=== PATIENT | female | born 1940 | race Caucasian/White ===

== ENCOUNTER 2018-11-20 13:11 | Emergency (ER) | payer MEDICARE, BC, SELFPAY ==
[2018-11-20 13:12] VITALS: BP 169/90; PULSE 72; RESP 18; TEMP 36.4; O2SAT 95; BMI 20.5
--- NOTE | 2018-11-20 13:40 | EKG12_ITS ---
Test Reason : ABD PAIN Blood Pressure : / mmHG Vent. Rate : 067 BPM Atrial Rate : 067 BPM P-R Int : 174 ms QRS Dur : 086 ms QT Int : 410 ms P-R-T Axes : 076 082 084 degrees QTc Int : 433 ms Normal sinus rhythm Minimal voltage criteria for LVH, may be normal variant Nonspecific ST and T wave abnormality Abnormal ECG Confirmed by JOHANA NUÑEZ, JAMAR ([id number]), newspaper managing editor CESAR JESUS ([id number]) on 11/22/2018 1:20:10 PM Referred By: SARA Confirmed By:JAMAR VAUGHN MD
[2018-11-20] MEDS: Ondansetron 4 MG/2 ML Vial IV (14:28)
[2018-11-20 14:43] LABS: Absolute Lymphocyte Count 1.55 X10^3/ul (0.83-4.51); Basophil# 0.02 X10^3/uL; Basophil% 0.2 % (0-1); Differential Indicated SCAN CRITERIA MET; Eosinophil# 0.19 X10^3/uL; Eosinophils% 2.2 % (0-5); Hematocrit 41.7 % (37-47); Hemoglobin 13.1 g/dl (12.0-15.0); Lymphocyte # 1.55 X10^3/ul (4.0); Lymphocyte % 18.2 % (19-41); Mean Corp Hgb Conc 31.4 g/gl (32-36); Mean Corpuscular Hgb 31.3 pg (27.0-32.0); Mean Corpuscular Volume 99.8 fL (81-99); Mean Platelet Vol. 9.6 fl (6.2-12.0); Monocyte# 1.75 X10^3/uL; Monocyte% 20.6 % (0-10); Neutrophil # 4.99 X10^3/uL (2.7-7.7); Neutrophil % 58.7 % (47-70); POSITIVE COUNT NO; POSITIVE DIFFERENTIAL YES; POSITIVE MORPHOLOGY NO; Platelet Count 349 K/mm3 (150-450); RBC Distribution Width CV 14.3 % (11.6-14.6); RBC Distribution Width SD 51.6 fl (35.1-43.9); Red Blood Count 4.18 M/mm3 (4.2-5.4); White Blood Count 8.5 K/mm3 (4.4-11.0)
--- NOTE | 2018-11-20 14:45 | CM.ED ---
SOCIAL WORK ASSESSMENT REASON FOR CONSULT: BEHAVIORS, HOSPICE INFORMANT: DR. PERALTA INFORMATION OBTAINED FROM: [facility] RECORDS, PT, AND PT'S DTR/GUARDIAN, TRIPP MAXWELL. PT IS ALERT AND ORIENTED. REPORTS TO BE IN PAIN AND CLAIMS SHE HAS BEEN HAVING ABDOMINAL PAIN SINCE YESTERDAY EVENING. PT IS TEARFUL THROUGHOUT CONVERSATION SHE STATES THAT SHE FEELS ISOLATED AND IS ANGRY WITH HER DAUGHTER WHO HAS TAKEN EVERYTHING FROM ME. LIVING ARRANGEMENTS: [facility] SINCE AUGUST. FINANCIAL: PT DENIES FINANCIAL INSTABILITY, BUT BECOMES UPSET SHE STATES THAT HER DAUGHTER IS NOW IN CONTROL OF ALL OF HER FUNDS. SUPPORTS: PT EXPRESSES AN ESTRANGED RELATIONSHIP WITH HER DAUGHTER, TRIPP MAXWELL, BUT REPORTS THAT HER GRANDSON, DESHAWN, IS A POSITIVE SUPPORT. IDENTIFIES FRIENDS THAT SHE HAS MADE SINCE GOING TO [facility], BUT BECOMES TEARFUL WHEN DISCUSSING FRIENDS FROM [facility] WHERE SHE RESIDED PRIOR TO [facility]. STRESSORS: LOSS OF INDEPENDENCE, FEELING OF ISOLATION, LIMITED SUPPORTS. MENTAL HEALTH HISTORY: PT DENIES ANY SIGNIFICANT MENTAL HEALTH HISTORY. DOES REPORT SYMPTOMS OF DEPRESSION AND STRESS AT THIS TIME. SUPPORT PROVIDED. PT DENIES ANY PAST HOSPITALIZATIONS FOR PSYCHIATRIC CONCERNS. DENIES SI OR HI. SPOKE WITH PT'S GUARDIAN WHO ALSO DENIES ANY PERTINENT PSYCHIATRIC HISTORY AND NONE IS LISTED IN HER MEDICAL CHART FROM [facility]. SUBSTANCE USE HX: PT REPORTS SMOKING TOBACCO SINCE THE AGE OF 14 UNTIL BEING TRANSFERRED TO SNF IN [place] IN AUGUST. DENIES HX OF ANY OTHER SUBSTANCE USE. ASSESSMENT: PT IS VERY UPSET THAT HER DAUGHTER IS IN CHARGE OF HER CARE, AND EXPRESSES THAT SHE DOES NOT UNDERSTAND WHY SHE NEEDS TO TAKE BP MEDICATIONS WHEN THEY (SNF STAFF) DO NOT EVEN CHECK MY BP TO MAKE SURE I NEED IT. PT ENGAGES IN CRITICAL THINKING AND IS A&OX3 THROUGHOUT CONVERSATION. SHE ALSO EXPRESSES INTEREST IN HOSPICE SERVICES. REPORTS SIGNIFICANT PAIN. PT APPEARS TO BE STRUGGLING WITH ADJUSTMENT OF RECENT MOVE TO [place] FROM [facility] AND WITH LOSS OF INDEPENDENCE. PLACED CALL TO THE PT'S DAUGHTER, TRIPP, WHO CONFIRMS SHE IS THE HCPOA AND GUARDIAN. TRIPP TO BRING PAPERWORK IN TIME ALLOWS. EXPERT EVALUATION COMPLETED BY PHYSICIAN IS ON CHART THAT WAS SENT TO [facility], BUT NOT LG PAPERWORK AT THIS TIME. DISCUSS PALLIATIVE VS. HOSPICE WITH TRIPP AND SHE STATES THAT THE PT HAS PALLIATIVE NOW. DOES NOT WANT TO SEEK HOSPICE AT THIS TIME. IF PT IS MEDICALLY STABLE TRIPP WOULD LIKE HER TO RETURN TO [facility] AND RECEIVE AN UPDATE ONCE THIS IS DETERMINED. PHYSICIAN UPDATED. INTERVENTION(S): ASSESSMENT COMPLETED. PLACED CALL TO GUARDIAN WHO CONFIRMS PLAN TO RETURN TO SNF. DISCUSSED CASE WITH STITCH WELDER, HIEN LOCKE. PLAN: RETURN TO [facility] ONCE DETERMINED MEDICALLY STABLE. KATE Ngo, MOISÉS
[2018-11-20 15:05] LABS: International Normalized Ratio 1.8; Prothrombin Time (Protime)PT. 21.2 SECONDS (11.7-14.9)
--- NOTE | 2018-11-20 15:09 | ED.VISSUMM ---
- ER Visit Summary Date of Service: 11/20/18 Chief Complaint: Abdominal pain History of Present Illness: The patient is a [address] Mcclelland. Patient reports that she has chronic abdominal pain. She describes it as a squeezing to her upper abdomen. Is 10 out of 10 at worst and 7-10 currently. It is worsened by nothing and relieved by Zofran. However, she reports that she is refusing to take her high blood pressure medications at the senior care because of this they stopped giving her Zofran. Patient complains of nausea, but denies vomiting. She reports that she has had diarrhea for years. She denies any dysuria or frequency. No fever or chills. Physical Examination: Vitals: Stable. Afebrile. General: Well-nourished and well-developed. Head: Normocephalic atraumatic. Neck: Supple, no lymphadenopathy. No JVD. Nontender. Cardiovascular: Regular rate and rhythm. No murmurs. Respiratory: No respiratory distress. Clear to auscultation bilaterally. Abdominal: Soft, mild epigastric tenderness to palpation, nondistended, normal bowel sounds. No guarding, rebound, or peritoneal signs. Back: Nontender. Extremities: Nontender, no edema. Skin: Normal color, no rash. Neurologic: Alert and oriented ?3. Cranial nerves II through XII are intact. Normal strength and sensation. Psych: Mental status exam: Patient appears their stated age. Good posture and grooming. Good eye contact. Normal rate, volume, and latency of speech. No suicidal or homicidal ideation. No auditory or visual hallucinations. Flow of thought is logical. Insight and judgment is fair. Test Results: EKG is sinus at 67 with left ventricular hypertrophy and repolarization changes. There is no old EKG for comparison. Troponin 0 0.016. UA is negative. LFTs show a globulin of 3.1. Lipase is normal. INR is 1.8. Chem-7 shows a chloride of 109 and glucose 123. CBC shows lymphs lites of 18 monocytes of 21. Depakote level is 26. Emergency Department Course and Treatment: Patient was here with a dose of Zofran is resting comfortably. She is quite frustrated with her primary care physician in [facility]. She was seen by case management here and is alert and oriented x3. She does not need to go to [facility]. Case management also spoke with her daughter who is her guardian and would like her transferred back to [facility]. Treatment Plan: Patient be transferred back to the senior care in stable condition. Follow-up with your primary care physician for further evaluation and treatment. Return to the emergency department for any worsening symptoms. Disposition: To home in improved and stable condition. Impression: 1. Abdominal pain, chronic. This note was generated with [employer] dictation software. It may contain incorrect words, spelling, and punctuation that were not noted in review of the chart prior to signing ED Disposition - Plan for ED Patient: Instructions: ED Abdominal Pain Unkn Cause Referrals: Sandhya Abdi MD [Primary Care Provider] - 1-2 Days if not improving
[2018-11-20 15:12] LABS: ALB/GLOB Ratio 0.9 RATIO (0.9-2.4); AST(SGOT) 17 U/L (15-37); Alanine Aminotransfer ALT/SGPT 19 U/L (13-56); Albumin, Serum 3.1 g/dL (3.2-5.0); Alkaline Phosphatase 79 U/L (45-117); Anion Gap 3 (5-15); BUN 11 mg/dL (7-18); BUN/Creat Ratio 15.2 RATIO (10-20); Chloride 109 mmol/L (98-107); Creatinine, Serum 0.72 mg/dL (0.55-1.02); EST Glomerular Filtration Rate 82 mL/min (>60); Est Glom Filt Rate - Afr Amer 100 mL/min (>60); Estimated Creatinine Clearance 41.62 ml/min; Globulin 3.6 g/dL (2.2-4.2); Glucose 123 mg/dL (74-106); Lipase 85 U/L (73-393); Potassium 4.2 mmol/L (3.5-5.1); Protein, Total 6.7 g/dL (6.4-8.2); Sodium Level 142 mmol/L (136-145)
[2018-11-20 15:21] LABS: Bacteria 0 SEEN /hpf (None Seen); Mucous, Urine 0 SEEN /hpf (<or=2+); Red Blood Cells-Urine 0 SEEN /hpf (0-5); Squamous Epithelial Cells - UA 0 SEEN /hpf (5-10); White Blood Cells 0 SEEN /hpf (0-5)
[2018-11-20 15:36] LABS: Color, Urine Yellow (Yellow); Glucose, Dipstick Normal (Normal); Ketone-Dipstick Negative (Negative); Leukocyte Esterase-Dipstick 25 /ul (Negative); Nitrite-Dipstick Negative (Negative); Occult Blood-Urine 10 /ul (Negative); Protein-Dipstick Negative (Negative); Urine Bilirubin Dipstick Negative (Negative); Urine Clarity Clear (Clear); Urine Urobilinogen Normal (Normal)
[2018-11-20 15:36] LABS: Valproic Acid (Depakene) Level 26 ug/mL (50-100)
[2018-11-20] MEDS: HYDROcodone Bitartrate/Apap 5/325 Tablet PO (16:55)
== END 2018-11-20 17:52 | disposition home or self-care (01) ==
LOC: ED 14:44
PROVIDERS: Emergency Provider Emergency Medicine; Family Provider Internal Medicine Geriatric Medicine; PCP Internal Medicine Geriatric Medicine
DX: R10.13 Epigastric pain (principal); G89.29 Other chronic pain; I10 Essential (primary) hypertension; Z86.73 Personal history of transient ischemic attack (TIA), and cerebral infarction without residual deficits; Z72.0 Tobacco use
CPT/HCPCS: 80053; 80164; 81001; 83690; 84484; 85025; 85610; 93005; 96361; 96374; 99284; J7040; A4216; J2405

== ENCOUNTER 2020-12-24 10:06 | Inpatient (IN) | payer MEDICARE, BC, SELFPAY ==
[2020-12-24] VITALS (7 sets, daily range): BP systolic 128–159; BP diastolic 59–128; PULSE 73–108; RESP 16–26; TEMP 36.6–36.7; O2SAT 94–97; BMI 20.4
--- NOTE | 2020-12-24 10:21 | RAD_ITS ---
STUDY: X-RAY CHEST REASON FOR EXAM: Female, 80 years old. Fall/trauma TECHNIQUE: Single AP portable view of the chest. COMPARISON: None. FINDINGS: Hyperinflation. Calcified granuloma in the right lower lobe. Mild increased markings at the lung bases suggestive of scarring. There is no demonstrated pleural abnormality. Normal size heart. Normal mediastinum and caleb. There is prominence of the pulmonary hilar arteries without peripheral pulmonary vascular congestion, suggesting pulmonary hypertension. There is atherosclerotic calcification of the aortic arch with tortuosity. There are diffuse degenerative changes of the visualized thoracic spine. Normal visualized ribs, clavicles, and shoulders. There is no demonstrated abnormality of the visualized soft tissue structures of the upper abdomen. RAD/Chest 1 View (Portable) IMPRESSION: Hyperinflation. Findings suggestive of mild scarring. Prominence of the pulmonary arteries bilaterally. Electronically Signed: Jamal Bhandari MD at 11:23 EDT , Service support ,
--- NOTE | 2020-12-24 10:21 | CT_ITS ---
STUDY: CT BRAIN WITHOUT CONTRAST REASON FOR EXAM: Female, 80 years old. History of fall. Dementia. RADIATION DOSAGE (If Supplied By Facility): CTDIvol = ( 44.99 ) mGy, DLP = ( 863.60 ) mGycm TECHNIQUE: Transaxial CT imaging of the brain was performed without administration of intravenous contrast material. Individualized dose optimization techniques were used for this CT. COMPARISON: No relevant priors. FINDINGS: Normal soft tissue structures. Normal calvarium. There is mild cerebral atrophy with widening of the extra-axial spaces and ventricular dilatation. There are areas of decreased attenuation within the white matter tracts of the supratentorial brain, consistent with microvascular disease changes. Normal basal ganglia and thalami. Normal brainstem. There is mild cerebellar atrophy. There is no intracranial hemorrhage. There are no findings of an acute ischemic infarction. Normal visualized paranasal sinuses. CT/Brain/Head without Contrast IMPRESSION: Chronic involutional changes of the brain. Electronically Signed: Jamal Bhandari MD at 11:19 EDT , Service support ,
--- NOTE | 2020-12-24 10:21 | RAD_ITS ---
STUDY: X-RAY - LEFT FEMUR REASON FOR STUDY: Female, 80 years old. Fall/trauma TECHNIQUE: 4 view(s) of the femur. COMPARISON: None. FINDINGS: Intertrochanteric fracture of the left femur. There is diffuse soft tissue swelling of the thigh. RAD/Femur Min 2 Views IMPRESSION: Intertrochanteric fracture of the left femur. Electronically Signed: Jamal Bhandari MD at 11:23 EDT , Service support ,
--- NOTE | 2020-12-24 10:21 | RAD_ITS ---
STUDY: X-RAY - PELVIS REASON FOR EXAM: Female, 80 years old. Fall/trauma TECHNIQUE: One view of the pelvis was obtained. COMPARISON: None. FINDINGS: There is a non-specific bowel gas pattern. There are multiple calcified phleboliths. There is narrowing with cortical sclerosis and osteophyte formation of the sacroiliac joint consistent with degenerative osteoarthritic changes. Healed bilateral inferior pubic rami fractures. There is narrowing with sclerosis of the pubic symphysis. Normal ischial tuberosities. Normal visualized right femoral head. Normal right acetabulum. There is mild articular joint space narrowing of the right hip. Nondisplaced left intertrochanteric fracture with cephalic migration of the distal fracture fragment. RAD/Pelvis 1 or 2 Views IMPRESSION: Nondisplaced left intertrochanteric fracture. Electronically Signed: Jamal Bhandari MD at 11:25 EDT , Service support ,
--- NOTE | 2020-12-24 10:22 | EKG12_ITS ---
Test Reason : FALL Blood Pressure : / mmHG Vent. Rate : 070 BPM Atrial Rate : 070 BPM P-R Int : 162 ms QRS Dur : 076 ms QT Int : 376 ms P-R-T Axes : 063 080 098 degrees QTc Int : 406 ms Normal sinus rhythm Minimal voltage criteria for LVH, may be normal variant Cannot rule out Inferior infarct , age undetermined Abnormal ECG Confirmed by JOHANA NUÑEZ, JAMAR ([id number]), editor producer CESAR JESUS ([id number]) on 12/29/2020 2:15:42 PM Referred By: IZZY Confirmed By:JAMAR VAUGHN MD
--- NOTE | 2020-12-24 10:23 | CT_ITS ---
STUDY: CT ABDOMEN AND PELVIS WITHOUT CONTRAST REASON FOR EXAM: Female, 80 years old. LLQ tenderness, following a fall. RADIATION DOSAGE (If Supplied By Facility): CTDIvol = ( 6.56 ) mGy, DLP = ( 295.17 ) mGycm TECHNIQUE: Transaxial images were obtained from the dome of the diaphragm to the symphysis pubis without oral contrast, and without intravenous contrast. Sagittal and coronal images were reconstructed. Individualized dose optimization techniques were used for this CT. COMPARISON: None. FINDINGS: Calcified granuloma in the right lower lobe. Increased markings at the lung bases suggestive of scarring. Coronary artery calcification. Normal liver. Normal gallbladder and extrahepatic biliary system. There are multiple benign calcified granulomata of the spleen. Normal pancreas. Normal bilateral adrenal glands. Normal right kidney. Normal left kidney. Normal visualized stomach. Normal small intestine. Normal colon. The appendix is visualized and appears normal. There is diffuse atherosclerotic calcification of the abdominal aorta, without a demonstrated aneurysm. Normal inferior vena cava. Normal retroperitoneum. Normal urinary bladder. There is absence of the uterus consistent with a prior hysterectomy. Normal abdominal wall. There are diffuse degenerative changes of the visualized lumbar spine. Demineralization of the bony structures. Almost complete collapse of the L1 vertebrae. Loss of height of the T12 vertebrae. Grade 1 anterior listhesis of L5 on S1. There is evidence of a nondisplaced left intertrochanteric fracture. CT/Abdomen/Pelvis without Cont IMPRESSION: Increased markings at the lung bases suggestive of scarring. Nondisplaced left intertrochanteric fracture. Almost complete collapse of the L1 vertebrae. Electronically Signed: Jamal Bhandari MD at 11:22 EDT , Service support ,
--- NOTE | 2020-12-24 10:25 | EDS_ITS ---
HPI HPI - Fall History of Present Illness Chief Complaint: Fall Informant: patient, EMS and SNF Occured/Mechanism Occurred: Today Mechanism/Context: Yes same level fall Narrative: lost her footing or tripped - I knew I was going down Usually ambulates: Walker Pain/Injury Pain Location: lower extremity (L hip) Quality of Pain: Aching Current Severity: Moderate Maximum Severity: Severe Worsened by: movement Relieved by: remaining still Associated Symptoms Associated Symptoms: Positive for Loss of function and Inability to ambulate; Negative for Parasthesias, Weakness, Loss of consciousness and Amnesia Narrative Narrative: [facility] patient DNR comfort care, usually walks without assistance although she is supposed to use a walker, fell today at the skilled nursing to her left hip, unable to stand or walk afterwards. She has a history of multiple mental health diagnoses including schizophrenia, the initial call from the skilled nursing to give nurse-nurse report since included the fact that her mental status was altered, however the report that EMS received did not include anything about her mental status being off from baseline. Her medication list includes warfarin, apparently for a history of chronic DVT. The patient does not think she hit her head. She does not recall having any prodromal symptoms, she thinks she got her feet caught up with each other and fell. No loss of consciousness. She states she injured her left hip and her left knee hurts a little as well but denies injuries otherwise. Nurses called the skilled nursing nurses, and were able to obtain some further information regarding her mental status. Yesterday at some point, one of the nurses states that she was yelling at me like usual. Last night, she was wandering around looking for cats that do not exist. Today while she was on the floor after fall, she was asking where her was, who has been for some time. The last exact time she was seen normal is not exactly known. [facility] Medical History CAD (coronary artery disease) Chronic pain COPD (chronic obstructive pulmonary disease) Dementia Depression DVT (deep venous thrombosis) GERD (gastroesophageal reflux disease) Heart attack Heart disease Hypokalemia IBS (irritable bowel syndrome) Osteoarthritis Schizophrenia Home Medications albuterol sulfate 2.5 mg INHALATION TID 12/24/20 [History Last Taken Unknown] albuterol sulfate [ProAir RespiClick] 1 inh INHALATION Q6H 12/24/20 [History Last Taken Unknown] amlodipine 5 mg PO DAILY 12/24/20 [History Last Taken Unknown] aspirin 81 mg PO DAILY 12/24/20 [History Last Taken Unknown] atenolol 12.5 mg PO DAILY 12/24/20 [History Last Taken Unknown] buprenorphine [Butrans] 1 patch TRANSDERMAL Q7D 12/24/20 [History Last Taken Unknown] calcium carbonate [Calcium Antacid] 500 mg PO BID 12/24/20 [History Last Taken Unknown] cholecalciferol (vitamin D3) 25 mcg PO DAILY 12/24/20 [History Last Taken Unknown] folic acid 1 mg PO DAILY 12/24/20 [History Last Taken Unknown] gabapentin 600 mg PO 4X/DAY 12/24/20 [History Last Taken Unknown] isosorbide mononitrate 30 mg PO DAILY 12/24/20 [History Last Taken Unknown] lidocaine 1 patch TOPICAL DAILY 12/24/20 [History Last Taken Unknown] mecobalamin (vitamin B12) [B12 Active] 500 mcg PO DAILY 12/24/20 [History Last Taken Unknown] naloxegol [Movantik] 25 mg PO DAILY 12/24/20 [History Last Taken Unknown] pantoprazole 20 mg PO DAILY 12/24/20 [History Last Taken Unknown] simethicone [Gas-X] 80 mg PO TID 12/24/20 [History Last Taken Unknown] tamsulosin 0.4 mg PO DAILY 12/24/20 [History Last Taken Unknown] warfarin 3 mg PO MOWETHSA 12/24/20 [History Last Taken Unknown] warfarin 4 mg PO SUTUFR 12/24/20 [History Last Taken Unknown] ziprasidone HCl [Geodon] 60 mg PO DINNER 12/24/20 [History Last Taken Unknown] Allergy/AdvReac Type Severity Reaction Status Date / Time acetaminophen [From Percocet] Allergy Unknown Verified 12/24/20 11:52 atropine [From ] Allergy Unknown Verified 12/24/20 11:52 codeine Allergy Unknown Verified 12/24/20 11:52 colestipol Allergy Unknown Verified 12/24/20 11:52 enalaprilat [From Vasotec] Allergy Unknown Verified 12/24/20 11:52 erythromycin base Allergy Unknown Verified 12/24/20 11:52 hydrochlorothiazide Allergy Unknown Verified 12/24/20 11:52 hyoscyamine [From ] Allergy Unknown Verified 12/24/20 11:52 losartan Allergy NEEDS Verified 12/24/20 11:52 FOLLOW-UP lovastatin Allergy Unknown Verified 12/24/20 11:52 mesalamine [From Asacol] Allergy Unknown Verified 12/24/20 11:52 metronidazole [From Flagyl] Allergy Unknown Verified 12/24/20 11:52 morphine Allergy Other Verified 12/24/20 11:52 nifedipine Allergy Unknown Verified 12/24/20 11:52 oxycodone Allergy Unknown Verified 12/24/20 11:52 Penicillins [PCN] Allergy Unknown Verified 12/24/20 11:52 phenobarbital [From ] Allergy Unknown Verified 12/24/20 11:52 propoxyphene Allergy Unknown Verified 12/24/20 11:52 [From Darvocet-N] scopolamine [From ] Allergy Unknown Verified 12/24/20 11:52 streptomycin Allergy Unknown Verified 12/24/20 11:52 sucralfate [From Carafate] Allergy Unknown Verified 12/24/20 11:52 Sulfa (Sulfonamide Allergy Unknown Verified 12/24/20 11:52 Antibiotics) tramadol Allergy Unknown Verified 12/24/20 11:52 Social History (Updated 12/24/20 @ 10:[address] Derek Galloway MD) housing: skilled nursing Smoking Status: Never smoker ROS ROS ED Constitutional Constitutional ED: Denies chills or fever(s) Eyes Eyes: Denies change in vision or diplopia ENT ENT ED: Denies rhinorrhea or sore throat Cardiovascular Cardiovascular: Denies chest pain or palpitations Respiratory/Chest Respiratory/Chest: Denies cough or dyspnea Gastrointestinal Gastrointestinal: Denies abdominal pain, diarrhea, nausea or vomiting Genitourinary Genitourinary ED: Denies dysuria or hematuria Musculoskeletal Musculoskeletal: Reports as per HPI and extremity pain; Denies back pain or neck pain Integumentary Denies abscess or rash Neurologic Neurologic: Denies headache(s), paresthesias or weakness Psychiatric Psychiatric: Reports as per HPI and hallucinations; Denies anxiety or suicidal thoughts EXAM Physical Exam Const Vital Signs: 12/24/20 10:08 12/24/20 10:22 12/24/20 11:56 Temperature 97.9 F Temperature Source Temporal Pulse Rate 73 87 Respiratory Rate 19 H 16 Respiratory Effort Normal Blood Pressure 159/128 H 140/67 H Blood Pressure Mean 138 91 Pulse Ox 96 95 Oxygen Delivery Method Room Air Room Air Positive well nourished and well developed General Appearance ED: well developed and NAD HEENT Reports normocephalic, TM's clear and moist mucous membranes HEENT Narrative: No evidence of head or facial trauma, montero sign, CSF otorhinorrhea, or hemotympanum. normocephalic and atraumatic Tympanic Membrane ED: Yes TM's clear Eyes PERRL and EOMs intact bilaterally Neck full ROM and supple Resp normal respiratory effort and clear to auscultation bilaterally Cardio regular rate, regular rhythm and no murmurs GI non-distended Auscultation: normoactive bowel sounds Palpation: soft and tender LLQ; Negative for guarding or rebound tenderness present Back/Spine no CVA tenderness General Back: other FROM Lumbar Spine / Lower Back: Negative for lumbar spinal tenderness Extremity Extremity Narrative: Left lower extremity held in neutral position, slightly shortened compared to the contralateral side, pain and tenderness with palpation of the left greater trochanter and with any range of motion of the hip. Mildly tender at the medial aspect of the distal femur near the knee, but the knee is otherwise nontender without effusion evidence of trauma or deformity. Limited range of motion due to hip pain only. General Extremety ED: Negative for edema or pulses abnormal General Extremity: Negative for edema or pulses abnormal Neuro CN's II-XII intact bilaterally and no sensory deficits noted Neuro Narrative: Does not know the correct date, but knows the year Sensorium / Orientation: awake, alert, oriented to person and oriented to place; Negative for oriented to time Motor Exam: strength 5/5 throughout Psych thought process normal, cooperative, affect normal and speech normal Psych Narrative: No active delusions or hallucinations Skin no rashes or lesions noted and no wounds MDM MDM MDM Narrative Medical decision making narrative: X-ray of the left hip and pelvis 3 view on my interpretation is consistent with an intertrochanteric fracture with displacement of the lesser trochanter. Also 1 view chest x-ray on my interpretation shows no acute abnormalities, but there are chronic-appearing changes, and of 2 view left femur x-ray to my interpretation show no acute bony abnormality beyond the hip fracture. Radiology in agreement. CT of abdomen and pelvis was performed given her tenderness to ensure she did not have any intra- abdominal reason for this, my guess is referred pain from her hip, and there is no sign of diverticulitis or any thing else acute in the abdomen. Pain was controlled with analgesics and will be admitted to the hospital. Discussed with orthopedics Dr. Cosme and hospitalist. Preop work-up unremarkable otherwise except for Coumadin coagulopathy. Lab Data Attestation: I reviewed the patient's lab results. Labs: Laboratory Results - last 24 hr 12/24/20 12/24/20 12/24/20 10:22 10:22 10:22 WBC 9.8 RBC 5.14 Hgb 15.2 H Hct 50.1 H MCV 97.5 MCH 29.6 MCHC 30.3 L RDW Std Deviation 49.4 H RDW Coeff of Marilu 13.6 Plt Count 406 MPV 9.4 Immature Gran % (Auto) 0.300 Neut % (Auto) 67.8 Lymph % (Auto) 17.9 L [place] % (Auto) 12.1 H Eos % (Auto) 1.6 Baso % (Auto) 0.3 Absolute Neuts (auto) 6.6 Absolute Lymphs (auto) 1.75 Nucleated RBC % 0 PT 28.7 H INR 2.8 Sodium 142 Potassium 3.7 Chloride 108 H Carbon Dioxide 33.0 H Anion Gap 1 L BUN 15 Creatinine 1.02 Estim Creat Clear Calc 37.28 Est GFR (MDRD) Af Amer 67 Est GFR (MDRD) Non-Af 55 L BUN/Creatinine Ratio 14.7 Glucose 121 H Calcium 11.1 H Troponin I < 0.015 Urine Color Urine Clarity Urine pH Ur Specific [place] Urine Protein Urine Glucose (UA) Urine Ketones Urine Occult Blood Urine Nitrite Urine Bilirubin Urine Urobilinogen Ur Leukocyte Esterase Urine RBC Urine WBC Ur Squamous Epith Cells Urine Bacteria Urine Mucus 12/24/20 11:40 WBC RBC Hgb Hct MCV MCH MCHC RDW Std Deviation RDW Coeff of Mar[place]u Plt Count MPV Immature Gran % (Auto) Neut % (Auto) Lymph % (Auto) [place] % (Auto) Eos % (Auto) Baso % (Auto) Absolute Neuts (auto) Absolute Lymphs (auto) Nucleated RBC % PT INR Sodium Potassium Chloride Carbon Dioxide Anion Gap BUN Creatinine Estim Creat Clear Calc Est GFR (MDRD) Af Amer Est GFR (MDRD) Non-Af BUN/Creatinine Ratio Glucose Calcium Troponin I Urine Color Yellow Urine Clarity Sl. Cloudy Urine pH 8.0 Ur Specific [place] 1.015 Urine Protein Negative Urine Glucose (UA) Normal Urine Ketones Negative Urine Occult Blood 25 H Urine Nitrite Negative Urine Bilirubin Negative Urine Urobilinogen Normal Ur Leukocyte Esterase Negative Urine RBC 0 SEEN Urine WBC 0-5 SEEN Ur Squamous Epith Cells 0-5 SEEN Urine Bacteria RARE Urine Mucus 0 SEEN Radiography Diagnostic Testing: Radiology Impression Brain CT 12/24/20 10:21 IMPRESSION: Chronic involutional changes of the brain. Electronically Signed: Jamal Bhandari MD at 11:19 EDT , Service support , Chest X-Ray 12/24/20 10:21 IMPRESSION: Hyperinflation. Findings suggestive of mild scarring. Prominence of the pulmonary arteries bilaterally. Electronically Signed: Jamal Bhandari MD at 11:23 EDT , Service support , Femur X-Ray 12/24/20 10:21 IMPRESSION: Intertrochanteric fracture of the left femur. Electronically Signed: Jamal Bhandari MD at 11:23 EDT , Service support , Pelvis X-Ray 12/24/20 10:21 IMPRESSION: Nondisplaced left intertrochanteric fracture. Electronically Signed: Jamal Bhandari MD at 11:25 EDT , Service support , Abdomen/Pelvis CT 12/24/20 10:23 IMPRESSION: Increased markings at the lung bases suggestive of scarring. Nondisplaced left intertrochanteric fracture. Almost complete collapse of the L1 vertebrae. Electronically Signed: Jamal Bhandari MD at 11:22 EDT , Service support , EKG Initial EKG: Attestation: I personally reviewed and interpreted this EKG as follows: Interpretation: Sinus Rhythm, No Acute Injury Pattern and Non-Specific ST Changes Discharge Plan Dx/Rx/DC Orders Clinical Impression: Closed intertrochanteric fracture of left hip Disposition Disposition: Acute Care Hospital [facility]
[2020-12-24] MEDS: fentaNYL 100 MCG/2 ML Ampul 25 MCG IV (10:37)
[2020-12-24 10:38] LABS: Absolute Lymphocyte Count 1.75 X10^3/uL (0.83-4.51); Absolute Neutrophil Count 6.6 X10^3/uL (2.0-7.7); Basophil# 0.03 X10^3/uL; Basophil% 0.3 % (0-1); Eosinophil# 0.16 X10^3/uL; Eosinophils% 1.6 % (0-5); Hematocrit 50.1 % (37-47); Hemoglobin 15.2 g/dL (12.0-15.0); Lymphocyte # 1.75 X10^3/ul (0.83-4.51); Lymphocyte % 17.9 % (19-41); Mean Corp Hgb Conc 30.3 g/dL (32-36); Mean Corpuscular Hgb 29.6 pg (27.0-32.0); Mean Corpuscular Volume 97.5 fL (81-99); Mean Platelet Vol. 9.4 fl (6.2-12.0); Monocyte# 1.18 X10^3/uL; Monocyte% 12.1 % (0-10); NRBC Flagged by Analyzer 0 % (0-5); Neutrophil # 6.64 X10^3/uL (2.7-7.7); Neutrophil % 67.8 % (47-70); Platelet Count 406 K/mm3 (150-450); RBC Distribution Width CV 13.6 % (11.6-14.6); RBC Distribution Width SD 49.4 fl (35.1-43.9); Red Blood Count 5.14 M/mm3 (4.2-5.4); White Blood Count 9.8 K/mm3 (4.4-11.0)
[2020-12-24 10:48] LABS: International Normalized Ratio 2.8; Prothrombin Time (Protime)PT. 28.7 SECONDS (11.7-14.9)
[2020-12-24 10:56] LABS: Anion Gap 1 (5-15); BUN 15 mg/dL (7-18); BUN/Creat Ratio 14.7 RATIO (10-20); Calcium,Total 11.1 mg/dL (8.5-10.1); Chloride 108 mmol/L (98-107); Creatinine, Serum 1.02 mg/dL (0.55-1.02); EST Glomerular Filtration Rate 55 mL/min (>60); Est Glom Filt Rate - Afr Amer 67 mL/min (>60); Estimated Creatinine Clearance 37.28 ml/min; Glucose 121 mg/dL (74-106); Potassium 3.7 mmol/L (3.5-5.1); Sodium Level 142 mmol/L (136-145)
--- NOTE | 2020-12-24 11:37 | NURSING ---
HOSPITALIST PAGED DR WINCHE[place] PAGED
[2020-12-24 11:42] LABS: Mucous, Urine 0 SEEN /hpf (<or=2+); Red Blood Cells-Urine 0 SEEN /hpf (0-5)
[2020-12-24 11:43] LABS: Color, Urine Yellow (Yellow); Glucose, Dipstick Normal (Normal); Ketone-Dipstick Negative (Negative); Leukocyte Esterase-Dipstick Negative /ul (Negative); Nitrite-Dipstick Negative (Negative); Occult Blood-Urine 25 /ul (Negative); Protein-Dipstick Negative (Negative); Specific Gravity, Urine 1.015 (1.002-1.030); Urine Bilirubin Dipstick Negative (Negative); Urine Clarity Sl. Cloudy (Clear); Urine Urobilinogen Normal (Normal)
[2020-12-24 11:52] LABS: Bacteria RARE /hpf (None Seen); Squamous Epithelial Cells - UA 0-5 SEEN /hpf (5-10); White Blood Cells 0-5 SEEN /hpf (0-5)
[2020-12-24] MEDS: fentaNYL 100 MCG/2 ML Ampul 50 MCG IV (11:53)
--- NOTE | 2020-12-24 11:55 | NURSING ---
DR CONTRERAS FOR DR MAGANA
--- NOTE | 2020-12-24 11:59 | NURSING ---
MED SURG TERELETSKY LT HIP FX
--- NOTE | 2020-12-24 15:57 | ECHOD_ITS ---
Reason For Study: PRE OPERATIVE (LEFT HIP FRACTURE) Procedure This was a 2D Doppler, Color Flow transthoracic echocardiogram. The study was technically difficult. Unable to reposition patient due to left hip fracture/pain. Unable to cooperate completely due to dementia. Exam performed portable in patient room. Left Ventricle Normal left ventricle. The estimated ejection fraction is EF 55-60% %. Right Ventricle Normal right ventricle. Normal systolic function. Atria Normal left atrium. Normal right atrium. Mitral Valve There is moderate mitral annular calcification. Tricuspid Valve Normal tricuspid valve. Aortic Valve Aortic sclerosis, no stenosis. Pulmonic Valve The pulmonic valve is not well visualized. Great Vessels Normal aortic root. Pericardium/Pleural No pericardial effusion. MMode/2D Measurements & Calculations LVIDd: 3.6 cm IVSd: 1.0 cm Ao root diam: 3.1 cm LVIDs: 2.2 cm LVPWd: 1.0 cm LA dimension: 3.2 cm FS: 37.8 % LAV(MOD-bp): 60.5 ml LA A4 area: 21.0 cm2 RA A4 area: 11.9 cm2 LAV(MOD-bp) Indexed: 41.8 ml/m2 LAV(MOD-sp2): 52.6 ml LAV(MOD-sp4): 62.9 ml Doppler Measurements & Calculations MV E max pratik: 70.3 cm/sec Lat Peak E' Pratik: 4.0 cm/sec Med Peak E' Pratik: 3.9 cm/sec MV A max pratik: 126.5 cm/sec E/E' lat: 17.6 E/E' med: 17.9 MV E/A: 0.56 Ao V2 max: 167.8 cm/sec LV V1 max: 161.8 cm/sec PA V2 max: 122.2 cm/sec Ao max P.3 mmHg LV V1 max P.5 mmHg Ao V2 mean: 111.2 cm/sec LV V1 mean P.7 mmHg Ao mean P.5 mmHg LV V1 mean: 101.9 cm/sec Ao V2 VTI: 25.5 cm LV V1 VTI: 26.4 cm TR max pratik: 319.0 cm/sec TR max P.7 mmHg ECHO/Echo Complete Interpretation Summary Normal LV systolic function The estimated ejection fraction is EF 55-60% %. Grade #Idiastolic Dysfunction There is moderate mitral annular calcification. Ordering Physician: David Swan Referring Physician: Jarred Abdi Performed By: Farheen Kearns, RDCS, RVT
--- NOTE | 2020-12-24 16:13 | PCM.CONS.GEN ---
Assessment & Plan Assessment/Plan (1) Closed intertrochanteric fracture of left hip: QUALIFIERS: Encounter type: initial encounter Fracture alignment: displaced Qualified Code(s): S72.142A - Displaced intertrochanteric fracture of left femur, initial encounter for closed fracture PLAN: Left hip displaced intertrochanteric fracture with lesser trochanteric involvement Patient is on Coumadin with an INR of 2.8, will need INR 1.5 or less Will need medical clearance Type and screen Payne's traction left lower extremity Antibiotics on-call to the OR Plan for surgery 12/26/2020 7:30 AM HPI Consult Data Date of Consult: 12/24/20 HPI Narrative HPI Narrative: TRIPP DAS, is a 80 F who presents in the emergency room department after a ground-level fall she is on Coumadin [facility] Medical History CAD (coronary artery disease) Chronic pain COPD (chronic obstructive pulmonary disease) Dementia Depression DVT (deep venous thrombosis) GERD (gastroesophageal reflux disease) Heart attack Heart disease Hypokalemia IBS (irritable bowel syndrome) Osteoarthritis Schizophrenia Home Medications albuterol sulfate 2.5 mg INHALATION TID 12/24/20 [History Last Taken Unknown] albuterol sulfate [ProAir RespiClick] 1 inh INHALATION Q6H 12/24/20 [History Last Taken Unknown] amlodipine 5 mg PO DAILY 12/24/20 [History Last Taken Unknown] aspirin 81 mg PO DAILY 12/24/20 [History Last Taken Unknown] atenolol 12.5 mg PO DAILY 12/24/20 [History Last Taken Unknown] buprenorphine [Butrans] 1 patch TRANSDERMAL Q7D 12/24/20 [History Last Taken Unknown] calcium carbonate [Calcium Antacid] 500 mg PO BID 12/24/20 [History Last Taken Unknown] cholecalciferol (vitamin D3) 25 mcg PO DAILY 12/24/20 [History Last Taken Unknown] folic acid 1 mg PO DAILY 12/24/20 [History Last Taken Unknown] gabapentin 600 mg PO 4X/DAY 12/24/20 [History Last Taken Unknown] isosorbide mononitrate 30 mg PO DAILY 12/24/20 [History Last Taken Unknown] lidocaine 1 patch TOPICAL DAILY 12/24/20 [History Last Taken Unknown] mecobalamin (vitamin B12) [B12 Active] 500 mcg PO DAILY 12/24/20 [History Last Taken Unknown] naloxegol [Movantik] 25 mg PO DAILY 12/24/20 [History Last Taken Unknown] pantoprazole 20 mg PO DAILY 12/24/20 [History Last Taken Unknown] simethicone [Gas-X] 80 mg PO TID 12/24/20 [History Last Taken Unknown] tamsulosin 0.4 mg PO DAILY 12/24/20 [History Last Taken Unknown] warfarin 3 mg PO MOWETHSA 12/24/20 [History Last Taken Unknown] warfarin 4 mg PO SUTUFR 12/24/20 [History Last Taken Unknown] ziprasidone HCl [Geodon] 60 mg PO DINNER 12/24/20 [History Last Taken Unknown] Allergy/AdvReac Type Severity Reaction Status Date / Time acetaminophen [From Percocet] Allergy Unknown Verified 12/24/20 11:52 atropine [From ] Allergy Unknown Verified 12/24/20 11:52 codeine Allergy Unknown Verified 12/24/20 11:52 colestipol Allergy Unknown Verified 12/24/20 11:52 enalaprilat [From Vasotec] Allergy Unknown Verified 12/24/20 11:52 erythromycin base Allergy Unknown Verified 12/24/20 11:52 hydrochlorothiazide Allergy Unknown Verified 12/24/20 11:52 hyoscyamine [From ] Allergy Unknown Verified 12/24/20 11:52 losartan Allergy NEEDS Verified 12/24/20 11:52 FOLLOW-UP lovastatin Allergy Unknown Verified 12/24/20 11:52 mesalamine [From Asacol] Allergy Unknown Verified 12/24/20 11:52 metronidazole [From Flagyl] Allergy Unknown Verified 12/24/20 11:52 morphine Allergy Other Verified 12/24/20 11:52 nifedipine Allergy Unknown Verified 12/24/20 11:52 oxycodone Allergy Unknown Verified 12/24/20 11:52 Penicillins [PCN] Allergy Unknown Verified 12/24/20 11:52 phenobarbital [From ] Allergy Unknown Verified 12/24/20 11:52 propoxyphene Allergy Unknown Verified 12/24/20 11:52 [From Darvocet-N] scopolamine [From ] Allergy Unknown Verified 12/24/20 11:52 streptomycin Allergy Unknown Verified 12/24/20 11:52 sucralfate [From Carafate] Allergy Unknown Verified 12/24/20 11:52 Sulfa (Sulfonamide Allergy Unknown Verified 12/24/20 11:52 Antibiotics) tramadol Allergy Unknown Verified 12/24/20 11:52 Social History (Updated 12/24/20 @ 10:[address] Derek Galloway MD) housing: halfway Smoking Status: Never smoker Physical Exam Const alert and no apparent distress General Appearance: cooperative Extremity Extremity Narrative: Compartments soft no significant ecchymosis or erythema positive logroll left, able to wiggle toes left lower extremity is shortened Lab / Micro Data Result Diagrams: 12/24/20 10:22 12/24/20 10:22 Labs: Laboratory Results - last 24 hr 12/24/20 12/24/20 12/24/20 10:22 10:22 10:22 WBC 9.8 RBC 5.14 Hgb 15.2 H Hct 50.1 H MCV 97.5 MCH 29.6 MCHC 30.3 L RDW Std Deviation 49.4 H RDW Coeff of Marilu 13.6 Plt Count 406 MPV 9.4 Immature Gran % (Auto) 0.300 Neut % (Auto) 67.8 Lymph % (Auto) 17.9 L [place] % (Auto) 12.1 H Eos % (Auto) 1.6 Baso % (Auto) 0.3 Absolute Neuts (auto) 6.6 Absolute Lymphs (auto) 1.75 Nucleated RBC % 0 PT 28.7 H INR 2.8 Sodium 142 Potassium 3.7 Chloride 108 H Carbon Dioxide 33.0 H Anion Gap 1 L BUN 15 Creatinine 1.02 Estim Creat Clear Calc 37.28 Est GFR (MDRD) Af Amer 67 Est GFR (MDRD) Non-Af 55 L BUN/Creatinine Ratio 14.7 Glucose 121 H Calcium 11.1 H Troponin I < 0.015 Urine Color Urine Clarity Urine pH Ur Specific [place] Urine Protein Urine Glucose (UA) Urine Ketones Urine Occult Blood Urine Nitrite Urine Bilirubin Urine Urobilinogen Ur Leukocyte Esterase Urine RBC Urine WBC Ur Squamous Epith Cells Urine Bacteria Urine Mucus 12/24/20 11:40 WBC RBC Hgb Hct MCV MCH MCHC RDW Std Deviation RDW Coeff of Marilu Plt Count MPV Immature Gran % (Auto) Neut % (Auto) Lymph % (Auto) [place] % (Auto) Eos % (Auto) Baso % (Auto) Absolute Neuts (auto) Absolute Lymphs (auto) Nucleated RBC % PT INR Sodium Potassium Chloride Carbon Dioxide Anion Gap BUN Creatinine Estim Creat Clear Calc Est GFR (MDRD) Af Amer Est GFR (MDRD) Non-Af BUN/Creatinine Ratio Glucose Calcium Troponin I Urine Color Yellow Urine Clarity Sl. Cloudy Urine pH 8.0 Ur Specific [place] 1.015 Urine Protein Negative Urine Glucose (UA) Normal Urine Ketones Negative Urine Occult Blood 25 H Urine Nitrite Negative Urine Bilirubin Negative Urine Urobilinogen Normal Ur Leukocyte Esterase Negative Urine RBC 0 SEEN Urine WBC 0-5 SEEN Ur Squamous Epith Cells 0-5 SEEN Urine Bacteria RARE Urine Mucus 0 SEEN Micro: Microbiology 12/24/20 11:35 SARS-CoV-2 Antigen (Rapid) - Final Interface Orders Radiology Impression Brain CT 12/24/20 10:21 IMPRESSION: Chronic involutional changes of the brain. Electronically Signed: Jamal Bhandari MD at 11:19 EDT , Service support , Chest X-Ray 12/24/20 10:21 IMPRESSION: Hyperinflation. Findings suggestive of mild scarring. Prominence of the pulmonary arteries bilaterally. Electronically Signed: Jamal Bhandair MD at 11:23 EDT , Service support , Femur X-Ray 12/24/20 10:21 IMPRESSION: Intertrochanteric fracture of the left femur. Electronically Signed: Jamal Bhandari MD at 11:23 EDT , Service support , Pelvis X-Ray 12/24/20 10:21 IMPRESSION: Nondisplaced left intertrochanteric fracture. Electronically Signed: Jamal Bhandari MD at 11:25 EDT , Service support , Abdomen/Pelvis CT 12/24/20 10:23 IMPRESSION: Increased markings at the lung bases suggestive of scarring. Nondisplaced left intertrochanteric fracture. Almost complete collapse of the L1 vertebrae. Electronically Signed: Jamal Bhandari MD at 11:22 EDT , Service support ,
[2020-12-24] MEDS: Ziprasidone HCl 20 MG Capsule 60 MG PO (17:08)
[2020-12-24] MEDS: Gabapentin 600 MG Tablet PO (17:08)
[2020-12-24] MEDS: Phytonadione (Vit K1) 5 MG TABLET PO ×2 (17:08)
[2020-12-24] MEDS: Calcium Carbonate 500 MG Tablet PO (17:08)
--- NOTE | 2020-12-24 18:39 | PCM.HP.STD ---
HPI - General General Date of Admission: 12/24/20 HPI Narrative TRIPP DAS, is a 80 F who presents to the emergency room at [facility] after being brought in by squad from a local extended care facility at which she resides due to left hip pain. Patient was found on the floor at the group home, the employees attempted to stand the patient at the group home but she was unable to stand due to severe left hip pain. Work-up in the emergency room included x-rays of the left hip which showed an intertrochanteric fracture of the left hip. Chest x-rays showed no acute abnormality, there was chronic lung changes on the chest x-ray. CT the abdomen pelvis was performed and there was no acute process noted in the abdomen. Labs were obtained which showed a normal white blood cell count, hemoglobin is 15.2, INR was 2.8. CT of the brain was performed which showed chronic involutional changes of the brain. Orthopedic surgery was contacted and agreed to see the patient in consultation, patient was admitted to PCU under MedSur status. [facility] Medical History CAD (coronary artery disease) Chronic pain COPD (chronic obstructive pulmonary disease) Dementia Depression DVT (deep venous thrombosis) GERD (gastroesophageal reflux disease) Heart attack Heart disease Hypokalemia IBS (irritable bowel syndrome) Osteoarthritis Schizophrenia Home Medications Tylenol 500 mg PO/SL Q6H 12/24/20 [History Last Taken 12/23/20] albuterol sulfate 2.5 mg INHALATION TID 12/24/20 [History Last Taken 12/24/20] albuterol sulfate [ProAir RespiClick] 1 inh INHALATION Q6H 12/24/20 [History Last Taken 12/24/20] amlodipine 5 mg PO DAILY 12/24/20 [History Last Taken 12/24/20] aspirin 81 mg PO DAILY 12/24/20 [History Last Taken 12/24/20] atenolol 12.5 mg PO DAILY 12/24/20 [History Last Taken 12/24/20] buprenorphine [Butrans] 1 patch TRANSDERMAL Q7D 12/24/20 [History Last Taken 12/20/20] calcium carbonate [Calcium Antacid] 500 mg PO BID 12/24/20 [History Last Taken 12/24/20] cholecalciferol (vitamin D3) 25 mcg PO DAILY 12/24/20 [History Last Taken 12/24/20] denosumab [Prolia] 60 mg SUBCUT 12/24/20 [History Last Taken Unknown] folic acid 1 mg PO DAILY 12/24/20 [History Last Taken 12/23/20] gabapentin 600 mg PO 4X/DAY 12/24/20 [History Last Taken 12/24/20] iron,carbonyl-vitamin C-FOS 1 tab PO/SL DAILY 12/24/20 [History Last Taken 12/24/20] isosorbide mononitrate 30 mg PO DAILY 12/24/20 [History Last Taken 12/24/20] lidocaine 1 patch TOPICAL DAILY 12/24/20 [History Last Taken 12/24/20] mecobalamin (vitamin B12) [B12 Active] 500 mcg PO DAILY 12/24/20 [History Last Taken 12/24/20] naloxegol [Movantik] 25 mg PO DAILY 12/24/20 [History Last Taken 12/24/20] pantoprazole 20 mg PO DAILY 12/24/20 [History Last Taken 12/24/20] psyllium [Metamucil] 1 packet PO DAILY 12/24/20 [History Last Taken 12/24/20] simethicone [Gas-X] 80 mg PO TID 12/24/20 [History Last Taken 12/24/20] tamsulosin 0.4 mg PO DAILY 12/24/20 [History Last Taken 12/23/20] warfarin 3 mg PO MOWETHSA 12/24/20 [History Last Taken 12/22/20] warfarin 4 mg PO SUTUFR 12/24/20 [History Last Taken 12/23/20] ziprasidone HCl [Geodon] 60 mg PO DINNER 12/24/20 [History Last Taken 12/23/20] Allergy/AdvReac Type Severity Reaction Status Date / Time acetaminophen [From Percocet] Allergy Unknown Verified 12/24/20 11:52 atropine [From ] Allergy Unknown Verified 12/24/20 11:52 codeine Allergy Unknown Verified 12/24/20 11:52 colestipol Allergy Unknown Verified 12/24/20 11:52 enalaprilat [From Vasotec] Allergy Unknown Verified 12/24/20 11:52 erythromycin base Allergy Unknown Verified 12/24/20 11:52 hydrochlorothiazide Allergy Unknown Verified 12/24/20 11:52 hyoscyamine [From ] Allergy Unknown Verified 12/24/20 11:52 losartan Allergy NEEDS Verified 12/24/20 11:52 FOLLOW-UP lovastatin Allergy Unknown Verified 12/24/20 11:52 mesalamine [From Asacol] Allergy Unknown Verified 12/24/20 11:52 metronidazole [From Flagyl] Allergy Unknown Verified 12/24/20 11:52 morphine Allergy Other Verified 12/24/20 11:52 nifedipine Allergy Unknown Verified 12/24/20 11:52 oxycodone Allergy Unknown Verified 12/24/20 11:52 Penicillins [PCN] Allergy Unknown Verified 12/24/20 11:52 phenobarbital [From ] Allergy Unknown Verified 12/24/20 11:52 propoxyphene Allergy Unknown Verified 12/24/20 11:52 [From Darvocet-N] scopolamine [From ] Allergy Unknown Verified 12/24/20 11:52 streptomycin Allergy Unknown Verified 12/24/20 11:52 sucralfate [From Carafate] Allergy Unknown Verified 12/24/20 11:52 Sulfa (Sulfonamide Allergy Unknown Verified 12/24/20 11:52 Antibiotics) tramadol Allergy Unknown Verified 12/24/20 11:52 Social History (Updated 12/24/20 @ 10:[address] Derek Galloway MD) housing: group home Smoking Status: Never smoker ROS ROS Narrative Review of systems was unobtainable due to schizoaffective disorder and chronic confusion. Review of Systems ROS Unobtainable: due to mental condition Vital Signs Vital Signs Vital Signs: 12/24/20 10:08 12/24/20 10:22 12/24/20 11:56 Temperature 97.9 F Temperature Source Temporal Pulse Rate 73 87 Pulse Strength Respiratory Rate 19 H 16 Respiratory Effort Normal Respiratory Depth Respiratory Pattern Blood Pressure 159/128 H 140/67 H Blood Pressure Mean 138 91 Blood Pressure Source Blood Pressure Position Blood Pressure Location Pulse Ox 96 95 Oxygen Delivery Method Room Air Room Air Oxygen Flow Rate (L/min) 12/24/20 12:20 12/24/20 13:20 12/24/20 14:00 Temperature 98 F 98.0 F Temperature Source Temporal Oral Pulse Rate 80 87 Pulse Strength Respiratory Rate 16 18 Respiratory Effort Normal Non-Labored Respiratory Depth Normal Respiratory Pattern Normal Blood Pressure 144/60 H 145/69 H Blood Pressure Mean 88 94 Blood Pressure Source Monitor Blood Pressure Position Semi-Fowlers Blood Pressure Location Right Arm Pulse Ox 95 94 Oxygen Delivery Method Room Air Nasal Cannula Nasal Cannula Oxygen Flow Rate (L/min) 2 2 12/24/20 14:49 12/24/20 17:06 Temperature 98.1 F Temperature Source Oral Pulse Rate 88 Pulse Strength Weak (1+) Respiratory Rate 18 Respiratory Effort Respiratory Depth Respiratory Pattern Blood Pressure 148/79 H Blood Pressure Mean 102 Blood Pressure Source Monitor Blood Pressure Position Semi-Fowlers Blood Pressure Location Right Arm Pulse Ox 97 Oxygen Delivery Method Room Air Oxygen Flow Rate (L/min) 2 Physical Exam Const alert Constitutional Narrative: Patient is alert but confused she does follow simple commands however Orientation / Consciousness: confused HEENT normocephalic, head/scalp atraumatic and moist oral mucous membranes Eyes PERRL, EOMs intact bilaterally and conjunctivae normal Neck no lymphadenopathy, supple, no JVD and no carotid bruits Resp normal respiratory effort, no retractions and no use of accessory muscles Resp Narrative: Lungs were clear bilaterally although breath sounds were distant bilaterally. Cardio regular rate and regular rhythm Cardio Narrative: There is a 2/6 systolic murmur noted at the apex and left sternal border GI normal to inspection, nondistended, normoactive bowel sounds, soft to palpation and non-tender Extremity normal to inspection Extremity Narrative: Range of motion was not performed on the left leg due to known intertrochanteric hip fracture Skin no rashes or lesions noted, no wounds and skin turgor normal Neuro no focal motor deficits Neuro Narrative: Patient is confused Sensorium / Orientation: alert Speech: speech normal Psych Psych Narrative: Patient is confused Attitude: bizarre Thought Process: disorganized, confused and confabulating Memory / Cognition: cognition impaired Lab / Micro Data Result Diagrams: 12/24/20 10:22 12/24/20 10:22 Labs: Laboratory Results - last 24 hr 12/24/20 12/24/20 12/24/20 10:22 10:22 10:22 WBC 9.8 RBC 5.14 Hgb 15.2 H Hct 50.1 H MCV 97.5 MCH 29.6 MCHC 30.3 L RDW Std Deviation 49.4 H RDW Coeff of Marilu 13.6 Plt Count 406 MPV 9.4 Immature Gran % (Auto) 0.300 Neut % (Auto) 67.8 Lymph % (Auto) 17.9 L [place] % (Auto) 12.1 H Eos % (Auto) 1.6 Baso % (Auto) 0.3 Absolute Neuts (auto) 6.6 Absolute Lymphs (auto) 1.75 Nucleated RBC % 0 PT 28.7 H INR 2.8 Sodium 142 Potassium 3.7 Chloride 108 H Carbon Dioxide 33.0 H Anion Gap 1 L BUN 15 Creatinine 1.02 Estim Creat Clear Calc 37.28 Est GFR (MDRD) Af Amer 67 Est GFR (MDRD) Non-Af 55 L BUN/Creatinine Ratio 14.7 Glucose 121 H Calcium 11.1 H Troponin I < 0.015 Urine Color Urine Clarity Urine pH Ur Specific [place] Urine Protein Urine Glucose (UA) Urine Ketones Urine Occult Blood Urine Nitrite Urine Bilirubin Urine Urobilinogen Ur Leukocyte Esterase Urine RBC Urine WBC Ur Squamous Epith Cells Urine Bacteria Urine Mucus Blood Type Antibody Screen 12/24/20 12/24/20 11:40 16:45 WBC RBC Hgb Hct MCV MCH MCHC RDW Std Deviation RDW Coeff of Marilu Plt Count MPV Immature Gran % (Auto) Neut % (Auto) Lymph % (Auto) [place] % (Auto) Eos % (Auto) Baso % (Auto) Absolute Neuts (auto) Absolute Lymphs (auto) Nucleated RBC % PT INR Sodium Potassium Chloride Carbon Dioxide Anion Gap BUN Creatinine Estim Creat Clear Calc Est GFR (MDRD) Af Amer Est GFR (MDRD) Non-Af BUN/Creatinine Ratio Glucose Calcium Troponin I Urine Color Yellow Urine Clarity Sl. Cloudy Urine pH 8.0 Ur Specific [place] 1.015 Urine Protein Negative Urine Glucose (UA) Normal Urine Ketones Negative Urine Occult Blood 25 H Urine Nitrite Negative Urine Bilirubin Negative Urine Urobilinogen Normal Ur Leukocyte Esterase Negative Urine RBC 0 SEEN Urine WBC 0-5 SEEN Ur Squamous Epith Cells 0-5 SEEN Urine Bacteria RARE Urine Mucus 0 SEEN Blood Type AB POSITIVE Antibody Screen NEGATIVE Micro: Microbiology 12/24/20 11:35 SARS-CoV-2 Antigen (Rapid) - Final Interface Orders Radiology Impression Brain CT 12/24/20 10:21 IMPRESSION: Chronic involutional changes of the brain. Electronically Signed: Jamal Bhandari MD at 11:19 EDT , Service support , Chest X-Ray 12/24/20 10:21 IMPRESSION: Hyperinflation. Findings suggestive of mild scarring. Prominence of the pulmonary arteries bilaterally. Electronically Signed: Jamal Bhandari MD at 11:23 EDT , Service support , Femur X-Ray 12/24/20 10:21 IMPRESSION: Intertrochanteric fracture of the left femur. Electronically Signed: Jamal Bhandari MD at 11:23 EDT , Service support , Pelvis X-Ray 12/24/20 10:21 IMPRESSION: Nondisplaced left intertrochanteric fracture. Electronically Signed: Jamal Bhandari MD at 11:25 EDT , Service support , Abdomen/Pelvis CT 12/24/20 10:23 IMPRESSION: Increased markings at the lung bases suggestive of scarring. Nondisplaced left intertrochanteric fracture. Almost complete collapse of the L1 vertebrae. Electronically Signed: Jamal Bhandari MD at 11:22 EDT , Service support , Assessment & Plan Assessment/Plan (1) Closed intertrochanteric fracture of left hip: QUALIFIERS: Encounter type: initial encounter Fracture alignment: displaced Qualified Code(s): S72.142A - Displaced intertrochanteric fracture of left femur, initial encounter for closed fracture PLAN: #1 Left intertrochanteric fracture-as a consequence of osteoporosis-patient will be seen by orthopedic surgery in consultation, I have given the patient vitamin K today, surgery will be attempted tomorrow if the patient is medically stable and her INR has corrected. #2 chronic obstructive pulmonary disease-patient is currently on 3 L of oxygen at all times #3 chronic hypoxic respiratory failure-patient is on oxygen 3 L/min via nasal cannula at the nursing facility #4 schizoaffective disorder-patient exhibits confusion and poor insight, permission for repair of the patient's hip fracture will come from her POA #5 chronic use of warfarin with elevated INR-patient will be given 10 mg of vitamin K orally today, INR will be rechecked tomorrow #6 chronic pain due to osteoarthritis #7 osteoporosis Further note: Patient is a DNR comfort care only according to her group home paperwork Visit Charges Inpatient E&M: 17304 Init Hosp L3
[2020-12-24] MEDS: Albuterol 2.5 MG/3 ML VIAL.NEB. INHALATION (19:17)
[2020-12-25] VITALS (13 sets, daily range): BP systolic 103–159; BP diastolic 46–78; PULSE 77–101; RESP 16–24; TEMP 36.1–37.2; O2SAT 93–98; BMI 20.4
[2020-12-25] MEDS: Morphine 2 MG/ML Syringe IV ×2 (03:25→22:01)
[2020-12-25] MEDS: 0.9% Saline Lock 10 ML Syringe IV ×2 (03:26→22:01)
--- NOTE | 2020-12-25 04:28 | NURSING ---
dr mckeon notified of blood pressure reading. Order for fluid bolus received.
[2020-12-25 05:38] LABS: Absolute Lymphocyte Count 2.29 X10^3/uL (0.83-4.51); Absolute Neutrophil Count 10.5 X10^3/uL (2.0-7.7); Basophil# 0.04 X10^3/uL; Basophil% 0.3 % (0-1); Eosinophil# 0.04 X10^3/uL; Eosinophils% 0.3 % (0-5); Hematocrit 37.3 % (37-47); Hemoglobin 11.5 g/dL (12.0-15.0); Lymphocyte # 2.29 X10^3/ul (0.83-4.51); Mean Corp Hgb Conc 30.8 g/dL (32-36); Mean Corpuscular Hgb 30.3 pg (27.0-32.0); Mean Corpuscular Volume 98.2 fL (81-99); Mean Platelet Vol. 10.2 fl (6.2-12.0); Monocyte# 2.29 X10^3/uL; NRBC Flagged by Analyzer 0 % (0-5); Neutrophil # 10.51 X10^3/uL (2.7-7.7); Neutrophil % 68.7 % (47-70); POSITIVE DIFFERENTIAL YES; Platelet Count 344 K/mm3 (150-450); RBC Distribution Width CV 13.6 % (11.6-14.6); RBC Distribution Width SD 48.3 fl (35.1-43.9); White Blood Count 15.3 K/mm3 (4.4-11.0)
[2020-12-25 05:41] LABS: Differential Indicated SCAN CRITERIA MET
[2020-12-25 06:17] LABS: Differential Comment SCANNED
[2020-12-25 06:24] LABS: International Normalized Ratio 1.6; Prothrombin Time (Protime)PT. 18.6 SECONDS (11.7-14.9)
[2020-12-25] MEDS: Folic Acid 1 MG Tablet PO (08:30)
[2020-12-25] MEDS: Tamsulosin HCl 0.4 MG Capsule PO (08:30)
[2020-12-25] MEDS: Pantoprazole Sodium 20 MG Tablet PO (08:30)
[2020-12-25] MEDS: Atenolol 25 MG Tablet 12.5 MG PO (08:30)
[2020-12-25] MEDS: Isosorbide Mononitrate 30 MG Tablet PO (08:30)
[2020-12-25] MEDS: amLODIPine 5 MG Tablet PO (08:30)
[2020-12-25] MEDS: Cholecalciferol (VIT D3) 25 MCG TABLET (1,000 UNITS) PO (08:30)
--- NOTE | 2020-12-25 09:00 | CASEMGMT ---
ESPERANZA faxed updates to [facility] where patient resides. Alana Fiore [employer]
--- NOTE | 2020-12-25 11:56 | CASEMGMT ---
ESPERANZA called patient's daughter, Lidia and confirmed patient's plan is to return to [facility]. Alana Fiore [employer]
[2020-12-25] MEDS: Albuterol 2.5 MG/3 ML VIAL.NEB. INHALATION ×2 (12:32→19:00)
[2020-12-25 14:15] LABS: Pathologist Review Reviewed
[2020-12-25] MEDS: Lactated Ringers 1,000 ML 100 ML IV ×2 (15:00→18:33)
--- NOTE | 2020-12-25 15:13 | CON.PCM_ITS ---
Assessment & Plan Assessment/Plan (1) Closed intertrochanteric fracture of left hip: QUALIFIERS: Encounter type: initial encounter Fracture alignment: displaced Qualified Code(s): S72.142A - Displaced intertrochanteric fracture of left femur, initial encounter for closed fracture PLAN: Patient has severe dementia with a unwitnessed fall. She resides in a [facility] facility. Natural history of the disease process was discussed with the family as well as available treatment options. At this time I recommended cephalomedullary nail of the left hip. Risks and benefits of the procedure were discussed the patient including not limited to blood loss, DVTs, PEs, nervous damage infection, the risk of anesthesia including loss of life. We also discussed nonunion, malunion and hardware failure. Family demonstrates an understanding and wished to proceed. They are able to sign informed consent. Patient is n.p.o. We will order clindamycin due to the patient's penicillin allergy which we cannot determine what her exact responses. Patient's INR is been corrected from 2.8-1.6. This time we are going to proceed with surgery this afternoon. Patient's power of b2b appointment setter understands and wishes to proceed. [facility] Office: [facility] Consult Data Date of Consult: 12/25/20 HPI Narrative Reason for Consultation: Left hip painRequested by Dr. Swan [facility] Narrative: TRIPP DAS, is a 80 F who presents today with left hip pain. Patient has significant medical comorbidities consistent with coronary artery disease, dementia and schizophrenia. She resides in a [facility] facility. Her grandson works there and was taking her dinner last evening when he walked in the room and found her down by the bedside calling for her ex-. She is unable to give significant medical history in addition to this. She does report severe pain. Pain is located in the hip. Outside of that she is not able to give any more significant history. Per the family she does have a history of attempting to do activities without supervision including getting out of bed at times. She was admitted to the hospital yesterday with an INR of 2.8 has been corrected to 1.6. She has been cleared by the medicine service for surgery. She is currently n.p.o. [facility] Medical History CAD (coronary artery disease) Chronic pain COPD (chronic obstructive pulmonary disease) Dementia Depression DVT (deep venous thrombosis) GERD (gastroesophageal reflux disease) Heart attack Heart disease Hypokalemia IBS (irritable bowel syndrome) Osteoarthritis Schizophrenia Home Medications Tylenol 500 mg PO/SL Q6H 12/24/20 [History Last Taken 12/23/20] albuterol sulfate 2.5 mg INHALATION TID 12/24/20 [History Last Taken 12/24/20] albuterol sulfate [ProAir RespiClick] 1 inh INHALATION Q6H 12/24/20 [History Last Taken 12/24/20] amlodipine 5 mg PO DAILY 12/24/20 [History Last Taken 12/24/20] aspirin 81 mg PO DAILY 12/24/20 [History Last Taken 12/24/20] atenolol 12.5 mg PO DAILY 12/24/20 [History Last Taken 12/24/20] buprenorphine [Butrans] 1 patch TRANSDERMAL Q7D 12/24/20 [History Last Taken 12/20/20] calcium carbonate [Calcium Antacid] 500 mg PO BID 12/24/20 [History Last Taken 12/24/20] cholecalciferol (vitamin D3) 25 mcg PO DAILY 12/24/20 [History Last Taken 12/24/20] denosumab [Prolia] 60 mg SUBCUT 12/24/20 [History Last Taken Unknown] folic acid 1 mg PO DAILY 12/24/20 [History Last Taken 12/23/20] gabapentin 600 mg PO 4X/DAY 12/24/20 [History Last Taken 12/24/20] iron,carbonyl-vitamin C-FOS 1 tab PO/SL DAILY 12/24/20 [History Last Taken 12/24/20] isosorbide mononitrate 30 mg PO DAILY 12/24/20 [History Last Taken 12/24/20] lidocaine 1 patch TOPICAL DAILY 12/24/20 [History Last Taken 12/24/20] mecobalamin (vitamin B12) [B12 Active] 500 mcg PO DAILY 12/24/20 [History Last Taken 12/24/20] naloxegol [Movantik] 25 mg PO DAILY 12/24/20 [History Last Taken 12/24/20] pantoprazole 20 mg PO DAILY 12/24/20 [History Last Taken 12/24/20] psyllium [Metamucil] 1 packet PO DAILY 12/24/20 [History Last Taken 12/24/20] simethicone [Gas-X] 80 mg PO TID 12/24/20 [History Last Taken 12/24/20] tamsulosin 0.4 mg PO DAILY 12/24/20 [History Last Taken 12/23/20] warfarin 3 mg PO MOWETHSA 12/24/20 [History Last Taken 12/22/20] warfarin 4 mg PO SUTUFR 12/24/20 [History Last Taken 12/23/20] ziprasidone HCl [Geodon] 60 mg PO DINNER 12/24/20 [History Last Taken 12/23/20] Allergy/AdvReac Type Severity Reaction Status Date / Time acetaminophen [From Percocet] Allergy Unknown Verified 12/24/20 11:52 atropine [From ] Allergy Unknown Verified 12/24/20 11:52 codeine Allergy Unknown Verified 12/24/20 11:52 colestipol Allergy Unknown Verified 12/24/20 11:52 enalaprilat [From Vasotec] Allergy Unknown Verified 12/24/20 11:52 erythromycin base Allergy Unknown Verified 12/24/20 11:52 hydrochlorothiazide Allergy Unknown Verified 12/24/20 11:52 hyoscyamine [From ] Allergy Unknown Verified 12/24/20 11:52 losartan Allergy NEEDS Verified 12/24/20 11:52 FOLLOW-UP lovastatin Allergy Unknown Verified 12/24/20 11:52 mesalamine [From Asacol] Allergy Unknown Verified 12/24/20 11:52 metronidazole [From Flagyl] Allergy Unknown Verified 12/24/20 11:52 morphine Allergy Other Verified 12/24/20 11:52 nifedipine Allergy Unknown Verified 12/24/20 11:52 oxycodone Allergy Unknown Verified 12/24/20 11:52 Penicillins [PCN] Allergy Unknown Verified 12/24/20 11:52 phenobarbital [From ] Allergy Unknown Verified 12/24/20 11:52 propoxyphene Allergy Unknown Verified 12/24/20 11:52 [From Darvocet-N] scopolamine [From ] Allergy Unknown Verified 12/24/20 11:52 streptomycin Allergy Unknown Verified 12/24/20 11:52 sucralfate [From Carafate] Allergy Unknown Verified 12/24/20 11:52 Sulfa (Sulfonamide Allergy Unknown Verified 12/24/20 11:52 Antibiotics) tramadol Allergy Unknown Verified 12/24/20 11:52 Social History (Updated 12/24/20 @ 10:[address] Derek Galloway MD) housing: [facility] Smoking Status: Never smoker ROS Review of Systems ROS Unobtainable: due to mental condition and other Physical Exam Narrative Patient has severe dementia. She is awake but not oriented Extremity Extremity Narrative: Left lower extremity: Shortened and internally rotated. Positive logroll. Wiggles toes. Reports sensations intact throughout the foot. Skin is intact. Lab / Micro Data Result Diagrams: 12/25/20 05:04 12/24/20 10:22 Labs: Laboratory Results - last 24 hr 12/24/20 12/25/20 12/25/20 16:45 05:04 05:04 WBC 15.3 H RBC 3.80 L Hgb 11.5 L Hct 37.3 MCV 98.2 MCH 30.3 MCHC 30.8 L RDW Std Deviation 48.3 H RDW Coeff of Marilu 13.6 Plt Count 344 MPV 10.2 Immature Gran % (Auto) 0.700 Neut % (Auto) 68.7 Lymph % (Auto) 15.0 L [place] % (Auto) 15.0 H Eos % (Auto) 0.3 Baso % (Auto) 0.3 Absolute Neuts (auto) 10.5 H Absolute Lymphs (auto) 2.29 Nucleated RBC % 0 Differential Comment SCANNED Diff Path Review Reviewed PT 18.6 H INR 1.6 Blood Type AB POSITIVE Antibody Screen NEGATIVE Micro: Microbiology 12/24/20 11:35 SARS-CoV-2 Antigen (Rapid) - Final Interface Orders Radiology Impression Echocardiogram 12/24/20 15:57 Interpretation Summary Normal LV systolic function The estimated ejection fraction is EF 55-60% %. Grade #Idiastolic Dysfunction There is moderate mitral annular calcification. Films were reviewed specifically the pelvis and left femur films show a intertrochanteric hip fracture with a displaced lesser trochanter. Ordering Physician: David Swan Referring Physician: Jarred Abdi Performed By: Farheen Kearns, CARLA, RVT
--- NOTE | 2020-12-25 15:22 | RAD_ITS ---
STUDY: X-RAY - PELVIS AND LEFT HIP REASON FOR EXAM: Female, 80 years old. IM RODDING TECHNIQUE: 5 intraoperative fluoroscopic views of the pelvis and hip. COMPARISON: Pelvic x-ray dated DECEMBER 24, 2020 FINDINGS: The images shows newly placed intramedullary scott through the intertrochanteric region and proximal femoral shaft with 2 proximal threaded and partially threaded long lag screws along the long axis of the femoral neck and head. Displaced intertrochanteric fractures have been reduced with improved alignment. RAD/HIP, UNI W/ Pelvis 2-3 Views IMPRESSION: Status post intramedullary nailing. Electronically Signed: Remigio Moy MD at 23:43 EDT , Service support ,
--- NOTE | 2020-12-25 16:08 | OP.PCM_ITS ---
Report of Operation Date of Procedure: 12/25/20 Pre-Operative Diagnosis: L IT hip frx Post-Operative Diagnosis: L IT hip frx Surgery/Procedure Performed:: L hip Cephalomedullary nail 1st pressman on web press: None Type of Anesthesia: General Anesthesiologist: Gibson [place] Special Medications: 600 cleocin Specimen's removed: none Estimated Blood Loss (mL): 150 Fluids Replaced: 400 ml crystalloid Description of Procedure: Components used: 1. [employer] InterTAN nail short 125 degree neck angle 11.5 mm nail 2. [employer] InterTAN lag screw mm85 3. [employer] millimeter interlocking screw35 Brief history operative indications: 80-year-old female with severe dementia presented after unwitnessed fall with left intertrochanteric hip fracture. After extensive discussion including risk and benefits which include but are not limited to blood loss, PEs, DVTs, neurovascular damage, nonunions, malunions and screw cut out patient has elected to proceed with a left cephalo-medullary nail. Procedure: On the date of the procedure the patient's left hip was marked in the preoperative area and patient was taken back to the operating room. Anesthetic was administered and patient was transferred to the table were all bony prominence identified well-padded and the ipsilateral arm was placed across the chest. Patient was then translated down to the perineal post and the operative leg was placed in the boot while the nonoperative leg was lowered and secured. The operative leg was placed in traction and internal rotation and live fluoroscopy was used to verify adequate reduction. The operative leg was then prepped in a sterile fashion with chlorhexidine while the surgeon scrubbed. Upon reentering the room the operative extremity was draped in the standard orthopedic fashion. Skin incision was marked and a timeout was called. Everyone agreed upon the side, the site, the procedure be performed, patient's identity, and antibiotics given. Skin incision was made and the position of the entry guidepin was verified using live fluoroscopy. Once we were satisfied with our position the pin was advanced in the soft tissue protector was placed over the pin. The entry reamer was then advanced into the proximal portion of the femur. A guidewire was placed down the intramedullary canal and fluoroscopy was used to verify that the anterior cortex had not been breached distally as well as satisfactory distal positioning. We then used live fluoroscopy to verify the length of the nail and a [employer] InterTAN short by 11.5 mm 125 hip nail was selected. The nail was then attached to the sales associate fishing and inserted into the intramedullary canal. The appropriate depth was verified and the skin incision for the lag screw was made. The lag screw guidepin was then placed under live fluoroscopy and when a satisfactory position was obtained the length of the screw was measured and the standard technique to drill for the lag screws was performed. The anti-rotation bar was used. At this time a 85 mm lag screw was selected with its corresponding compression screw. The lag screw was then passed and traction was left off the leg. The compression screw was then passed and the fracture was compressed. The final position of the lag screw was verified under fluoroscopy. Attention was then turned to the distal portion of the nail and a extra medullary guide technique was used to locate the distal interlocking screw and a 35 mm distal interlocking screw was placed using this technique. Live fluoroscopy was used to verify the position of the interlocking screw and the final position of the hip components. Once we were satisfied with our positioning the wounds were copiously irrigated out with normal saline skin was closed with 2-0 Vicryl and mikala for final skin closure. A sterile dressing was placed with Xeroform. Patient was then awakened by anesthesia transferred from the fracture table back to their hospital bed and transferred to the PACU for recovery. Postoperative plan: Patient will be weight-bear as tolerated. Resume Coumadin for DVT prophylaxis with knee-high stockings. Follow up in the office in 2 weeks. Complications No intraoperative complications Admit VTE Documentation VTE Present on Admission: No VTE Mechan Device Prophylaxis: SCD's and Thigh High MONA Hose VTE Pharm Prophylaxis ordered?: Yes
[2020-12-25] MEDS: Gabapentin 600 MG Tablet PO (18:33)
[2020-12-25] MEDS: Ziprasidone HCl 20 MG Capsule 60 MG PO (18:33)
--- NOTE | 2020-12-25 18:38 | PN.HOSP_ITS ---
Subjective Subjective Patient was seen and examined earlier today, she appears stable for surgery and patient with surgery today and there was no complications noted. Patient's echocardiogram showed a normal EF. Patient still appears confused, she does not appear to be in any distress Objective Data Objective Data Vital Signs: Vital Signs Temp Pulse Resp BP Pulse Ox 97.1 F L 78 16 130/63 H 94 12/25/20 17:00 12/25/20 17:00 12/25/20 17:00 12/25/20 17:00 12/25/20 17:00 Oxygen Flow Rate (L/min) 2 Oxygen Delivery Method Nasal Cannula Weight: 52.3 kg Body Mass Index (BMI) 20.4 Intake & Output: Intake and Output for Last 24 Hours 12/23/20 12/24/20 12/25/20 23:59 23:59 23:59 Intake Total 245 / 445 609 / 609 Output Total 850 / 1150 1050 / 1050 Balance -605 / -705 -441 / -441 Lab / Micro Data Result Diagrams: 12/25/20 05:04 12/24/20 10:22 Labs: Laboratory Results - last 24 hr 12/25/20 12/25/20 05:04 05:04 WBC 15.3 H RBC 3.80 L Hgb 11.5 L Hct 37.3 MCV 98.2 MCH 30.3 MCHC 30.8 L RDW Std Deviation 48.3 H RDW Coeff of Marilu 13.6 Plt Count 344 MPV 10.2 Immature Gran % (Auto) 0.700 Neut % (Auto) 68.7 Lymph % (Auto) 15.0 L [place] % (Auto) 15.0 H Eos % (Auto) 0.3 Baso % (Auto) 0.3 Absolute Neuts (auto) 10.5 H Absolute Lymphs (auto) 2.29 Nucleated RBC % 0 Differential Comment SCANNED Diff Path Review Reviewed PT 18.6 H INR 1.6 Micro: Microbiology 12/24/20 11:35 Interface Orders SARS-CoV-2 Antigen (Rapid) - Final Radiography Diagnostic Testing: Radiology Impression Echocardiogram 12/24/20 15:57 Interpretation Summary Normal LV systolic function The estimated ejection fraction is EF 55-60% %. Grade #Idiastolic Dysfunction There is moderate mitral annular calcification. Ordering Physician: David Swan Referring Physician: Jarerd Abdi Performed By: Farheen Kearns RDCS, RVT Physical Exam Narrative Const alert Constitutional Narrative: Patient is alert but confused she does follow simple commands however Orientation / Consciousness: confused HEENT normocephalic, head/scalp atraumatic and moist oral mucous membranes Eyes PERRL, EOMs intact bilaterally and conjunctivae normal Neck no lymphadenopathy, supple, no JVD and no carotid bruits Resp normal respiratory effort, no retractions and no use of accessory muscles Resp Narrative: Lungs were clear bilaterally although breath sounds were distant bilaterally. Cardio regular rate and regular rhythm Cardio Narrative: There is a 2/6 systolic murmur noted at the apex and left sternal border GI normal to inspection, nondistended, normoactive bowel sounds, soft to palpation and non-tender Extremity normal to inspection Extremity Narrative: Range of motion was not performed on the left leg due to known intertrochanteric hip fracture Skin no rashes or lesions noted, no wounds and skin turgor normal Neuro no focal motor deficits Neuro Narrative: Patient is confused Sensorium / Orientation: alert Speech: speech normal Psych Psych Narrative: Patient is confused Attitude: bizarre Thought Process: disorganized, confused and confabulating Const alert Constitutional Narrative: Patient is alert but confused she does follow simple commands however Orientation / Consciousness: confused HEENT normocephalic, head/scalp atraumatic and moist oral mucous membranes Eyes PERRL, EOMs intact bilaterally and conjunctivae normal Neck no lymphadenopathy, supple, no JVD and no carotid bruits Resp normal respiratory effort, no retractions and no use of accessory muscles Resp Narrative: Lungs were clear bilaterally although breath sounds were distant bilaterally. Cardio regular rate and regular rhythm Cardio Narrative: There is a 2/6 systolic murmur noted at the apex and left sternal border GI normal to inspection, nondistended, normoactive bowel sounds, soft to palpation and non-tender Extremity normal to inspection Extremity Narrative: Range of motion was not performed on the left leg due to known intertrochanteric hip fracture Skin no rashes or lesions noted, no wounds and skin turgor normal Neuro no focal motor deficits Neuro Narrative: Patient is confused Sensorium / Orientation: alert Speech: speech normal Psych Psych Narrative: Patient is confused Attitude: bizarre Thought Process: disorganized, confused and confabulating Memory / Cognition: cognition impaired Assessment & Plan Assessment/Plan (1) Closed intertrochanteric fracture of left hip: QUALIFIERS: Encounter type: initial encounter Fracture alignment: displaced Qualified Code(s): S72.142A - Displaced intertrochanteric fracture of left femur, initial encounter for closed fracture PLAN: #1 Left intertrochanteric fracture-as a consequence of osteoporosis-postop day 0 insertion of left hip cephalomedullary nail #2 chronic obstructive pulmonary disease-patient is currently on 3 L of oxygen at all times #3 chronic hypoxic respiratory failure-patient is on oxygen 3 L/min via nasal cannula at the nursing facility #4 schizoaffective disorder-patient exhibits confusion and poor insight #5 chronic use of warfarin with elevated INR-Coumadin will be restarted tomorrow #6 chronic pain due to osteoarthritis #7 osteoporosis Further note: Patient is a DNR comfort care only according to her retirement paperwork Visit Charges Inpatient E&M: 62906 Subs Hosp L2
--- NOTE | 2020-12-25 20:30 | NURSING ---
Report called to med surg Nurse Tone for transfer.
--- NOTE | 2020-12-25 20:34 | NURSING ---
Informed Pt's daughter of room change
[2020-12-25] MEDS: Temazepam 15 MG Capsule PO (22:35)
[2020-12-26] VITALS (18 sets, daily range): BP systolic 98–140; BP diastolic 51–67; PULSE 63–102; RESP 18–20; TEMP 36.9–38; O2SAT 75–97; BMI 20.4
[2020-12-26] MEDS: Lactated Ringers 1,000 ML 100 ML IV ×3 (02:53→21:08)
[2020-12-26] MEDS: Albuterol 2.5 MG/3 ML VIAL.NEB. INHALATION ×2 (07:10→12:23)
[2020-12-26 07:17] LABS: Hematocrit 29.7 % (37-47); Hemoglobin 8.9 g/dL (12.0-15.0); Mean Corpuscular Hgb 29.7 pg (27.0-32.0); Mean Platelet Vol. 10.4 fl (6.2-12.0); Platelet Count 266 K/mm3 (150-450); RBC Distribution Width CV 14.1 % (11.6-14.6); RBC Distribution Width SD 50.8 fl (35.1-43.9); White Blood Count 10.3 K/mm3 (4.4-11.0)
--- NOTE | 2020-12-26 07:33 | PN.ORTHO_ITS ---
Subjective Subjective The patient was sitting in bed upon examination. Per nursing patient was combative and complaining of significant pain yesterday and she was given Restoril. Patient is sleeping and is very lethargic and somnolent. Dressings look clean and dry. X-rays are stable. Discussed case with hospitalist and he states patient has psycho affective disorder. Patient is permanently in a alf. Plan will be for them to go back to the alf. Objective Data Objective Data Vital Signs: Vital Signs Temp Pulse Resp BP Pulse Ox 98.4 F 78 18 98/56 L 97 12/26/20 05:45 12/26/20 05:45 12/26/20 05:45 12/26/20 05:45 12/26/20 05:45 Oxygen Flow Rate (L/min) 4 Oxygen Delivery Method Nasal Cannula Weight: 52.3 kg Body Mass Index (BMI) 20.4 Intake & Output: Intake and Output for Last 24 Hours 12/24/20 12/25/20 12/26/20 23:59 23:59 23:59 Intake Total 245 / 445 709 / 709 833.33 / 833.33 Output Total 850 / 1150 1150 / 1150 100 / 100 Balance -605 / -705 -441 / -441 733.33 / 733.33 Lab / Micro Data Result Diagrams: 12/26/20 05:55 12/24/20 10:22 Labs: Laboratory Results - last 24 hr 12/25/20 12/26/20 05:04 05:55 WBC 10.3 RBC 3.00 L Hgb 8.9 L Hct 29.7 L MCV 99.0 MCH 29.7 MCHC 30.0 L RDW Std Deviation 50.8 H RDW Coeff of Marilu 14.1 Plt Count 266 MPV 10.4 Diff Path Review Reviewed Micro: Microbiology 12/24/20 11:35 Interface Orders SARS-CoV-2 Antigen (Rapid) - Final Radiography Diagnostic Testing: Radiology Impression Echocardiogram 12/24/20 15:57 Interpretation Summary Normal LV systolic function The estimated ejection fraction is EF 55-60% %. Grade #Idiastolic Dysfunction There is moderate mitral annular calcification. Ordering Physician: David Swan Referring Physician: Jarred Abdi Performed By: Farheen Kearns, RDCS, RVT Hip/Pelvis X-Ray 12/25/20 15:22 IMPRESSION: Status post intramedullary nailing. Electronically Signed: Remigio Moy MD at 23:43 EDT , Service support , Physical Exam Narrative Vital signs stable and afebrile. Patient is sleeping: Very lethargic and somnolent No appreciable clinical exam could be obtained due to sleepiness. Dressings are clean dry and intact. Assessment & Plan Assessment/Plan (1) Closed intertrochanteric fracture of left hip: QUALIFIERS: Encounter type: initial encounter Fracture alignment: displaced Qualified Code(s): S72.142A - Displaced intertrochanteric fracture of left femur, initial encounter for closed fracture PLAN: 1. S/P left hip cephalomedullary nail POD #1 2. Continue Pain Medications: Managed by medicine, currently on oxycodone 3. DVT Prophylaxis: Patient will resume her Coumadin today. 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 4. PT/OT: Weightbearing as tolerated with walker 5. H & H: 8.9/29.7, asymptomatic. Postoperative anemia secondary to acute blood loss from surgery without any intra operative complications. 6. Encouraged Incentive Spirometry 7. Continue postoperative medical management per medicine: Discussed case with hospitalist and at this time patient has significant history for psycho affective disorder. She is currently sleeping secondary to medications. Plan will be for her to go back to the alf. 7. Disposition: Orthopedically stable, okay for discharge when medically stable. Patient will be weightbearing as tolerated on the left lower extremity with walker. Continue her Coumadin for DVT prophylaxis. Continue pain medication as prescribed by hospitalist. Patient will require follow-up with Dr. Erwin Tobin in 2 weeks for x-rays and staple removal. Appreciate consult and please contact orthopedics with any concerns or questions.
[2020-12-26 07:39] LABS: Creatinine, Serum 0.85 mg/dL (0.55-1.02); EST Glomerular Filtration Rate 69 mL/min (>60); Est Glom Filt Rate - Afr Amer 83 mL/min (>60); Estimated Creatinine Clearance 42.86 ml/min
[2020-12-26 08:18] LABS: International Normalized Ratio 1.3; Prothrombin Time (Protime)PT. 15.4 SECONDS (11.7-14.9)
--- NOTE | 2020-12-26 11:17 | CASEMGMT ---
Addendum entered by Esme Palmer 12/26/20 11:45: ESPERANZA faxed updated clinicals to [facility]. Original Note: Social Work Note Pt is medically ready for discharge today. ESPERANZA placed a call to [facility] and spoke with Kat in admissions. ESPERANZA updated Kat that pt is medically ready for discharge today. Kat states pt is able to return to [facility] today, will need RAPID COVID done. ESPERANZA informed Kat that this worker will fax PT/OT when available. Kat states understanding. ESPERANZA updated Physician that pt can discharge back to SNF today, will need RAPID COVID. Plan: Return to [facility] today Esme Palmer CELLARS SUPERVISOR, PRODUCTION SUPPORT ENGINEER
--- NOTE | 2020-12-26 12:43 | NURSING ---
LATE ENTRY - 1200 - O2 5L NC HOWEVER, PT IS A MOUTH BREATHER SO NC IS SITTING BY PT MOUTH. O2 SAT 78%. PT PLACED ON VENTI MASK @ 28%. RESP CALLED. RT GAVE PT AEROSOL TX & PLACED ON 50% VENTI MASK. O2 SAT UP TO 89%. DR Cote NOTIFIED VIA [facility]EXT. NO NEW ORDERS @ THIS TIME. WILL MONITOR.
[2020-12-26] MEDS: Morphine 2 MG/ML Syringe IV (13:54)
[2020-12-26] MEDS: 0.9% Saline Lock 10 ML Syringe IV (13:55)
--- NOTE | 2020-12-26 14:31 | RAD_ITS ---
STUDY: X-RAY CHEST REASON FOR EXAM: Female, 80 years old. HYPOXIA TECHNIQUE: Single AP portable view of the chest. COMPARISON: Comparison is made with prior study dated 12/24/2020. FINDINGS: EKG electrodes are seen. Small right pleural effusion. Blunting of the left costo phrenic angle. Since prior study, there has been an increase in the left basilar atelectasis/infiltrate. Stable mild increased markings at the right lung base. The lung bases likely worse on the left side. Calcified granulomas in the right lower lobe. Normal size heart. Calcified right hilar lymph nodes. Normal visualized pulmonary arteries. There is atherosclerotic calcification of the aortic arch with tortuosity. There are diffuse degenerative changes of the visualized thoracic spine. Levoscoliosis. There is degenerative osteoarthritis of the bilateral shoulders. There is no demonstrated abnormality of the visualized soft tissue structures of the upper abdomen. RAD/Chest 1 View (Portable) IMPRESSION: Small right pleural effusion. Progressive infiltrate/atelectasis at the right lung base. Electronically Signed: Jamal Bhandari MD at 15:04 EDT , Service support ,
--- NOTE | 2020-12-26 14:35 | CASEMGMT ---
Social Work Note Pt is now not medically ready for dicharge today. SW placed a call to Kat at [facility] and updated her no discharge today, possibly over the weekend. SW placed Green sheet, transport form and COVID tool on pt's chart. Pt will need a COVID test on the day of discharge. Plan: [facility] when medically cleared Esme Palmer SIGHT EFFECTS SPECIALIST, JEWELRY INSPECTOR
--- NOTE | 2020-12-26 17:12 | PN.HOSP_ITS ---
Subjective Subjective Patient was seen and examined today, earlier in the day she had no signs of any respiratory distress but later on the day her pulse ox dropped, I did a chest x- ray on her which showed a possible infiltrate versus atelectasis, I think this is probably atelectasis and I placed her on program DuoNeb aerosol treatments. Patient remains confused which I believe is her baseline behavior. Objective Data Objective Data Vital Signs: Vital Signs Temp Pulse Resp BP Pulse Ox 98.4 F 102 H 20 H 140/63 H 93 12/26/20 13:51 12/26/20 13:51 12/26/20 13:51 12/26/20 13:51 12/26/20 14:00 Oxygen Flow Rate (L/min) 12 Oxygen Delivery Method Non-Rebreather Weight: 52.3 kg Body Mass Index (BMI) 20.4 Intake & Output: Intake and Output for Last 24 Hours 12/24/20 12/25/20 12/26/20 23:59 23:59 23:59 Intake Total 245 / 445 709 / 709 1700.00 / 1700.00 Output Total 850 / 1150 1150 / 1150 275 / 275 Balance -605 / -705 -441 / -441 1425.00 / 1425.00 Lab / Micro Data Result Diagrams: 12/26/20 05:55 12/26/20 05:55 Labs: Laboratory Results - last 24 hr 12/26/20 12/26/20 12/26/20 05:55 05:55 05:55 WBC 10.3 RBC 3.00 L Hgb 8.9 L Hct 29.7 L MCV 99.0 MCH 29.7 MCHC 30.0 L RDW Std Deviation 50.8 H RDW Coeff of Marilu 14.1 Plt Count 266 MPV 10.4 PT 15.4 H INR 1.3 Creatinine 0.85 Estim Creat Clear Calc 42.86 Est GFR (MDRD) Af Amer 83 Est GFR (MDRD) Non-Af 69 Micro: Microbiology 12/24/20 11:35 Interface Orders SARS-CoV-2 Antigen (Rapid) - Final Radiography Diagnostic Testing: Radiology Impression Hip/Pelvis X-Ray 12/25/20 15:22 IMPRESSION: Status post intramedullary nailing. Electronically Signed: Remigio Moy MD at 23:43 EDT , Service support , Chest X-Ray 12/26/20 14:31 IMPRESSION: Small right pleural effusion. Progressive infiltrate/atelectasis at the right lung base. Electronically Signed: Jamal Bhandari MD at 15:04 EDT , Service support , Physical Exam Narrative Const alert Constitutional Narrative: Patient is alert but confused she does follow simple commands however Orientation / Consciousness: confused HEENT normocephalic, head/scalp atraumatic and moist oral mucous membranes Eyes PERRL, EOMs intact bilaterally and conjunctivae normal Neck no lymphadenopathy, supple, no JVD and no carotid bruits Resp normal respiratory effort, no retractions and no use of accessory muscles Resp Narrative: Lungs were clear bilaterally although breath sounds were distant bilaterally. Cardio regular rate and regular rhythm Cardio Narrative: There is a 2/6 systolic murmur noted at the apex and left sternal border GI normal to inspection, nondistended, normoactive bowel sounds, soft to palpation and non-tender Extremity normal to inspection Extremity Narrative: Range of motion was not performed on the left leg due to known intertrochanteric hip fracture Skin no rashes or lesions noted, no wounds and skin turgor normal Neuro no focal motor deficits Neuro Narrative: Patient is confused Sensorium / Orientation: alert Speech: speech normal Psych Psych Narrative: Patient is confused Attitude: bizarre Thought Process: disorganized, confused and confabulating Const no apparent distress Constitutional Narrative: Patient is alert but confused she does follow simple commands however Orientation / Consciousness: disoriented and lethargic HEENT head/scalp atraumatic Head and Scalp: normocephalic Eyes PERRL, EOMs intact bilaterally and conjunctivae normal Neck no lymphadenopathy, supple and no JVD Resp normal respiratory effort, no retractions and no use of accessory muscles Resp Narrative: Decreased breath sounds are noted bilaterally Cardio regular rate, regular rhythm, S1 normal heart sound, S2 normal heart sound, no gallops and no clicks Cardio Narrative: There is a 2/6 systolic murmur noted at the apex and left sternal border GI normal to inspection, nondistended, normoactive bowel sounds, soft to palpation and non-tender Extremity normal to inspection Extremity Narrative: Left upper leg incision area looks clean and dry at this time, no redness was noted Skin no rashes or lesions noted and skin turgor normal Neuro CN's II-XII intact bilaterally Neuro Narrative: Patient is lethargic, she does respond to painful stimuli Sensorium / Orientation: alert Speech: speech normal Psych Psych Narrative: Patient is lethargic and confused Attitude: bizarre Thought Process: disorganized, confused and confabulating Memory / Cognition: cognition impaired Assessment & Plan Assessment/Plan (1) Closed intertrochanteric fracture of left hip: QUALIFIERS: Encounter type: initial encounter Fracture alignment: displaced Qualified Code(s): S72.142A - Displaced intertrochanteric fracture of left femur, initial encounter for closed fracture PLAN: #1 Left intertrochanteric fracture-as a consequence of osteoporosis-postop day 1 insertion of left hip cephalomedullary nail #2 chronic obstructive pulmonary disease-patient is currently on a Ventimask at this time, DuoNeb aerosol treatments were ordered For the patient #3 chronic hypoxic respiratory failure-patient is on oxygen 3 L/min via nasal cannula at the nursing facility #4 schizoaffective disorder-patient exhibits confusion and poor insight #5 chronic use of warfarin with elevated INR-Coumadin will be restarted tomorrow #6 chronic pain due to osteoarthritis #7 osteoporosis #8 atelectasis right lung base-continue aerosol treatments Further note: Patient is a DNR comfort care only according to her intermediate paperwork Visit Charges Inpatient E&M: 00638 Subs Hosp L2
[2020-12-26] MEDS: Ipratropium/Albuterol Sulfate 3 ML AMPUL.NEB INHALATION (18:50)
--- NOTE | 2020-12-26 23:54 | NURSING ---
Pt resting comfortably in bed at this time. 125cc of urine noted to be in cannister for purewick at this time.
[2020-12-27] VITALS (14 sets, daily range): BP systolic 150–172; BP diastolic 70–100; PULSE 88–106; RESP 16–18; TEMP 36.4–37.5; O2SAT 91–97
[2020-12-27] MEDS: Morphine 2 MG/ML Syringe IV ×6 (00:49→20:07)
[2020-12-27] MEDS: Ipratropium/Albuterol Sulfate 3 ML AMPUL.NEB INHALATION ×4 (00:57→19:30)
[2020-12-27] MEDS: Lactated Ringers 1,000 ML 100 ML IV ×2 (06:12→15:28)
[2020-12-27] MEDS: Atenolol 25 MG Tablet 12.5 MG PO (11:40)
[2020-12-27] MEDS: Isosorbide Mononitrate 30 MG Tablet PO (11:40)
[2020-12-27] MEDS: amLODIPine 5 MG Tablet PO (11:46)
[2020-12-27] MEDS: Pantoprazole Sodium 20 MG Tablet PO (11:46)
[2020-12-27] MEDS: oxyCODONE 5 MG Tablet 10 MG PO (11:50)
[2020-12-27] MEDS: Ziprasidone HCl 20 MG Capsule 60 MG PO (13:09)
--- NOTE | 2020-12-27 13:50 | PN.HOSP_ITS ---
Subjective Subjective Patient was seen and examined today, she is currently on 6 L oxygen via Ventimask, she appears to be comfortable at this time, patient remains confused but does not appear to be in any distress she did complain of pain earlier today from her hip fracture. Objective Data Objective Data Vital Signs: Vital Signs Temp Pulse Resp BP Pulse Ox 98.8 F 100 18 172/99 H 91 12/27/20 12:45 12/27/20 12:45 12/27/20 12:45 12/27/20 12:45 12/27/20 12:59 Oxygen Flow Rate (L/min) 6 Oxygen Delivery Method Venturi Mask Weight: 52.3 kg Body Mass Index (BMI) 20.4 Intake & Output: Intake and Output for Last 24 Hours 12/25/20 12/26/20 12/27/20 23:59 23:59 23:59 Intake Total 709 / 709 2658.33 / 2658.33 906.67 / 906.67 Output Total 1150 / 1150 400 / 400 700 / 700 Balance -441 / -441 2258.33 / 2258.33 206.67 / 206.67 Lab / Micro Data Result Diagrams: 12/26/20 05:55 12/26/20 05:55 Micro: Microbiology 12/24/20 11:35 Interface Orders SARS-CoV-2 Antigen (Rapid) - Final Radiography Diagnostic Testing: Radiology Impression Chest X-Ray 12/26/20 14:31 IMPRESSION: Small right pleural effusion. Progressive infiltrate/atelectasis at the right lung base. Electronically Signed: Jamal Bhandari MD at 15:04 EDT , Service support , Physical Exam Narrative [facility] [id number] [facility] [place] [address] Progress Note - Blcihubltjq60/14/212#: [id number]:[id number]:TRIPP DAS VRep #:[id number]: [id number]: David Swan DOPCP:Dr. Sandhya Abdi MD Status:ADM INLocation: [id number] Subjective Subjective Patient was seen and examined today, earlier in the day she had no signs of any respiratory distress but later on the day her pulse ox dropped, I did a chest x- ray on her which showed a possible infiltrate versus atelectasis, I think this is probably atelectasis and I placed her on program DuoNeb aerosol treatments. Patient remains confused which I believe is her baseline behavior. Objective Data Objective Data Vital Signs: Vital Signs Temp Pulse Resp BP Pulse Ox 98.4 F 102 H 20 H 140/63 H 93 12/26/20 13:51 12/26/20 13:51 12/26/20 13:51 12/26/20 13:51 0 12/26/20 14:00 Oxygen Flow Rate (L/min) 12 Oxygen Delivery Method Non-Rebreather Weight: 52.3 kg Body Mass Index (BMI) 20.4 Intake & Output:Intake and Output for Last 24 Hours 12/24/20 12/25/20 12/26/20 23:59 23:59 23:59 Intake Total 245 / 445 709 / 709 1700.00 / 1700.00 Output Total 850 / 1150 1150 / 1150 275 / 275 Balance -605 / -705 -441 / -441 1425.00 / 1425.00 Lab / Micro Data Result Diagrams: 12/26/20 05:55 document embedded image 12/26/20 05:55 document embedded image Labs:Laboratory Results - last 24 hr 12/26/20 12/26/20 12/26/20 05:55 05:55 05:55 WBC 10.3 RBC 3.00 L Hgb 8.9 L Hct 29.7 L MCV 99.0 MCH 29.7 MCHC 30.0 L RDW Std Deviation 50.8 H RDW Coeff of Marilu 14.1 Plt Count 266 MPV 10.4 PT 15.4 H INR 1.3 Creatinine 0.85 Estim Creat Clear Calc 42.86 Est GFR (MDRD) Af Amer 83 Est GFR (MDRD) Non-Af 69 Micro:Microbiology 12/24/20 11:35 Interface Orders SARS-CoV-2 Antigen (Rapid) - Final Radiography Diagnostic Testing:Radiology Impression Hip/Pelvis X-Ray 12/25/20 15:22 IMPRESSION: Status post intramedullary nailing. Electronically Signed: Remigio Moy MD at 23:43 EDT , Service support , Chest X-Ray 12/26/20 14:31 IMPRESSION: Small right pleural effusion. Progressive infiltrate/atelectasis at the right lung base. Electronically Signed: Jamal Bhandari MD at 15:04 EDT , Service support , Physical Exam Narrative Const alert Constitutional Narrative: Patient is alert but confused she does follow simple commands however Orientation / Consciousness: confused HEENT normocephalic, head/scalp atraumatic and moist oral mucous membranes Eyes PERRL, EOMs intact bilaterally and conjunctivae normal Neck no lymphadenopathy, supple, no JVD and no carotid bruits Resp normal respiratory effort, no retractions and no use of accessory muscles Resp Narrative: Lungs were clear bilaterally although breath sounds were distant bilaterally. Cardio regular rate and regular rhythm Cardio Narrative: There is a 2/6 systolic murmur noted at the apex and left sternal border GI normal to inspection, nondistended, normoactive bowel sounds, soft to palpation and non-tender Extremity normal to inspection Extremity Narrative: Range of motion was not performed on the left leg due to known intertrochanteric hip fracture Skin no rashes or lesions noted, no wounds and skin turgor normal Neuro no focal motor deficits Neuro Narrative: Patient is confused Sensorium / Orientation: alert Speech: speech normal Psych Psych Narrative: Patient is confused Attitude: bizarre Thought Process: disorganized, confused and confabulating Const alert and no apparent distress Constitutional Narrative: Patient is alert but confused she does follow simple commands however Orientation / Consciousness: confused, disoriented and lethargic HEENT normocephalic, head/scalp atraumatic and moist oral mucous membranes Eyes PERRL, EOMs intact bilaterally and conjunctivae normal Neck no lymphadenopathy, supple, no JVD and no carotid bruits Resp normal respiratory effort, no retractions and no use of accessory muscles Resp Narrative: Decreased breath sounds are noted bilaterally Cardio regular rate, regular rhythm, S1 normal heart sound, S2 normal heart sound, no gallops and no clicks Cardio Narrative: There is a 2/6 systolic murmur noted at the apex and left sternal border GI normal to inspection, nondistended, normoactive bowel sounds, soft to palpation and non-tender Extremity normal to inspection Extremity Narrative: Left upper leg incision area looks clean and dry at this time, no redness was noted Skin no rashes or lesions noted, no wounds and skin turgor normal Neuro CN's II-XII intact bilaterally and no focal motor deficits Neuro Narrative: Patient is lethargic, she does respond to painful stimuli Sensorium / Orientation: alert Speech: speech normal Psych Psych Narrative: Patient is lethargic and confused Attitude: bizarre Thought Process: disorganized, confused and confabulating Memory / Cognition: cognition impaired Assessment & Plan Assessment/Plan (1) Closed intertrochanteric fracture of left hip: QUALIFIERS: Encounter type: initial encounter Fracture alignment: displaced Qualified Code(s): S72.142A - Displaced intertrochanteric fracture of left femur, initial encounter for closed fracture PLAN: #1 Left intertrochanteric fracture-as a consequence of osteoporosis-postop day 2 insertion of left hip cephalomedullary nail #2 chronic obstructive pulmonary disease-patient is currently on a Ventimask at this time, DuoNeb aerosol treatments will continue #3 chronic hypoxic respiratory failure-patient is on oxygen 3 L/min via nasal cannula at the nursing facility, she is currently on 6 L and appears stable at this time #4 schizoaffective disorder-patient exhibits confusion and poor insight #5 chronic use of warfarin with elevated INR-Coumadin will be restarted tomorrow #6 chronic pain due to osteoarthritis #7 osteoporosis #8 atelectasis right lung base-continue aerosol treatments Further note: Patient is a DNR comfort care only according to her shelter paperwork
--- NOTE | 2020-12-27 15:45 | CPS ---
This RT found pt SpO2 78% and pt had pulled venti mask off her face and was laying on her lap. This RT replaced the mask and told the pt she needed to keep the mask on. Pt attempted to take the mask off 2 more times. This RT replaced the mask with a HFNC at 8lpm and SpO2 returned back to 93%. RN notified.
[2020-12-27] MEDS: Gabapentin 600 MG Tablet PO (17:56)
[2020-12-27] MEDS: Calcium Carbonate 500 MG Tablet PO (17:56)
[2020-12-27] MEDS: Temazepam 15 MG Capsule PO (21:52)
[2020-12-28] VITALS (10 sets, daily range): BP systolic 119–167; BP diastolic 47–96; PULSE 77–95; RESP 16–20; TEMP 36.7–37.5; O2SAT 91–97
[2020-12-28] MEDS: Ipratropium/Albuterol Sulfate 3 ML AMPUL.NEB INHALATION ×4 (00:23→19:33)
[2020-12-28] MEDS: Lactated Ringers 1,000 ML 100 ML IV ×3 (01:12→19:51)
[2020-12-28] MEDS: Morphine 2 MG/ML Syringe IV ×2 (04:18→14:01)
[2020-12-28] MEDS: Aspirin 81 MG TAB.CHEW PO (10:18)
[2020-12-28] MEDS: Atenolol 25 MG Tablet 12.5 MG PO (10:19)
[2020-12-28] MEDS: Isosorbide Mononitrate 30 MG Tablet PO (10:20)
[2020-12-28] MEDS: Pantoprazole Sodium 20 MG Tablet PO (10:21)
[2020-12-28] MEDS: Tamsulosin HCl 0.4 MG Capsule PO (10:23)
[2020-12-28] MEDS: Folic Acid 1 MG Tablet PO (10:23)
[2020-12-28] MEDS: amLODIPine 5 MG Tablet PO (10:24)
[2020-12-28] MEDS: Cholecalciferol (VIT D3) 25 MCG TABLET (1,000 UNITS) PO (10:24)
[2020-12-28] MEDS: Ziprasidone HCl 20 MG Capsule 60 MG PO (14:04)
--- NOTE | 2020-12-28 16:00 | PN.HOSP_ITS ---
Subjective Subjective Patient was seen and examined today, she is now on 5 L nasal cannula O2, oral intake is still poor. I talked with her daughter by phone today and went over her medical care with her. According to the daughter, patient has a diagnosis of dementia at the half-way. Patient's last hemoglobin was 2 days ago, I wi ll repeat her CBC tomorrow and if she remains on nasal cannula oxygen and her vitals are stable, I will transfer her back to her [facility] facility. Objective Data Objective Data Vital Signs: Vital Signs Temp Pulse Resp BP Pulse Ox 98.0 F 95 18 137/70 H 94 12/28/20 14:00 12/28/20 14:00 12/28/20 14:00 12/28/20 14:00 12/28/20 14:00 Oxygen Flow Rate (L/min) 5 Oxygen Delivery Method Room Air Weight: 52.3 kg Body Mass Index (BMI) 20.4 Intake & Output: Intake and Output for Last 24 Hours 12/26/20 12/27/20 12/28/20 23:59 23:59 23:59 Intake Total 2658.33 / 2658.33 1933.34 / 1933.34 1994.00 / 1994.00 Output Total 400 / 400 1350 / 1575 325 / 325 Balance 2258.33 / 2258.33 583.34 / 358.34 1670.00 / 1670.00 Lab / Micro Data Result Diagrams: 12/26/20 05:55 12/26/20 05:55 Micro: Microbiology 12/24/20 11:35 Interface Orders SARS-CoV-2 Antigen (Rapid) - Final Physical Exam Narrative [facility] [address] [facility] [place] [address] Progress Note - Zcliajsahat54/15/21 1350MR#: [id number]:[id number]:TRIPP DAS [facility] #:[id number]: From: David Swan DOPCP:Dr. Sandhya Abdi MD Status:ADM INLocation: [id number] Subjective Subjective Patient was seen and examined today, she is currently on 6 L oxygen via Ventima sk, she appears to be comfortable at this time, patient remains confused but does not appear to be in any distress she did complain of pain earlier today from her hip fracture. Objective Data Objective Data Vital Signs: Vital Signs Temp Pulse Resp BP Pulse Ox 98.8 F 100 18 172/99 H 91 12/27/20 12:45 12/27/20 12:45 12/27/20 12:45 12/27/20 12:45 12/27/20 12:59 Oxygen Flow Rate (L/min) 6 Oxygen Delivery Method Venturi Mask Weight: 52.3 kg Body Mass Index (BMI) 20.4 Intake & Output:Intake and Output for Last 24 Hours 12/25/20 12/26/20 12/27/20 23:59 23:59 23:59 Intake Total 709 / 709 2658.33 / 2658.33 906.67 / 906.67 Output Total 1150 / 1150 400 / 400 700 / 700 Balance -441 / -441 2258.33 / 2258.33 206.67 / 206.67 Lab / Micro Data Result Diagrams: 12/26/20 05:55 document embedded image 12/26/20 05:55 document embedded image Micro:Microbiology 12/24/20 11:35 Interface Orders SARS-CoV-2 Antigen (Rapid) - Final Radiography Diagnostic Testing:Radiology Impression Chest X-Ray 12/26/20 14:31 IMPRESSION: Small right pleural effusion. Progressive infiltrate/atelectasis at the right lung base. Electronically Signed: Jamal Bhandari MD at 15:04 EDT , Service support , Physical Exam Narrative [facility] [address] [place] [address] Progress Note - Yqhotrqexon22/14/21 1712#: [id number]:TRIPP DAS [facility] #:[id number]: [id number]: David Swan DOPCP:Dr. Sandhya Abdi MD Status:ADM INLocation: [id number] Subjective Subjective Patient was seen and examined today, earlier in the day she had no signs of any respiratory distress but later on the day her pulse ox dropped, I did a chest x- ray on her which showed a possible infiltrate versus atelectasis, I think this is probably atelectasis and I placed her on program DuoNeb aerosol treatments. Patient remains confused which I believe is her baseline behavior. Objective Data Objective Data Vital Signs: Vital Signs Temp Pulse Resp BP Pulse Ox 98.4 F 102 H 20 H 140/63 H 93 12/26/20 13:51 12/26/20 13:51 12/26/20 13:51 12/26/20 13:51 12/26/20 14:00 Oxygen Flow Rate (L/min) 12 Oxygen Delivery Method Non-Rebreather Weight: 52.3 kg Body Mass Index (BMI) 20.4 Intake & Output:Intake and Output for Last 24 Hours 12/24/20 12/25/20 12/26/20 23:59 23:59 23:59 Intake Total 245 / 445 709 / 709 1700.00 / 1700.00 Output Total 850 / 1150 1150 / 1150 275 / 275 Balance -605 / -705 -441 / -441 1425.00 / 1425.00 Lab / Micro Data Result Diagrams: 12/26/20 05:55 document embedded image 12/26/20 05:55 document embedded image Labs:Laboratory Results - last 24 hr 12/26/20 12/26/20 12/26/20 05:55 05:55 05:55 WBC 10.3 RBC 3.00 L Hgb 8.9 L Hct 29.7 L MCV 99.0 MCH 29.7 MCHC 30.0 L RDW Std Deviation 50.8 H RDW Coeff of Marilu 14.1 Plt Count 266 MPV 10.4 PT 15.4 H INR 1.3 Creatinine 0.85 Estim Creat Clear Calc 42.86 Est GFR (MDRD) Af Amer 83 Est GFR (MDRD) Non-Af 69 Micro:Microbiology 12/24/20 11:35 Interface Orders SARS-CoV-2 Antigen (Rapid) - Final Radiography Diagnostic Testing:Radiology Impression Hip/Pelvis X-Ray 12/25/20 15:22 IMPRESSION: Status post intramedullary nailing. Electronically Signed: Remigio Moy MD at 23:43 EDT , Service support , Chest X-Ray 12/26/20 14:31 IMPRESSION: Small right pleural effusion. Progressive infiltrate/atelectasis at the right lung base. Electronically Signed: Jamal Bhandari MD at 15:04 EDT , Service support , Physical Exam Narrative Const alert Constitutional Narrative: Patient is alert but confused Orientation / Consciousness: confused HEENT normocephalic, head/scalp atraumatic and moist oral mucous membranes Eyes PERRL, EOMs intact bilaterally and conjunctivae normal Neck no lymphadenopathy, supple, no JVD and no carotid bruits Resp normal respiratory effort, no retractions and no use of accessory muscles Resp Narrative: Lungs were clear bilaterally although breath sounds were distant bilaterally. Cardio regular rate and regular rhythm Cardio Narrative: There is a 2/6 systolic murmur noted at the apex and left sternal border GI normal to inspection, nondistended, normoactive bowel sounds, soft to palpation and non-tender Extremity normal to inspection Extremity Narrative: Range of motion was not performed on the left leg due to known intertrochanteric hip fracture Skin no rashes or lesions noted, no wounds and skin turgor normal Neuro no focal motor deficits Neuro Narrative: Patient is confused Sensorium / Orientation: alert Speech: speech normal Psych Psych Narrative: Patient is confused Attitude: bizarre Thought Process: disorganized, confused and confabulating Const alert and no apparent distress Constitutional Narrative: Patient is alert but confused she does follow simple commands however Orientation / Consciousness: confused, disoriented and lethargic HEENT normocephalic, head/scalp atraumatic and moist oral mucous membranes Eyes PERRL, EOMs intact bilaterally and conjunctivae normal Neck no lymphadenopathy, supple, no JVD and no carotid bruits Resp normal respiratory effort, no retractions and no use of accessory muscles Resp Narrative: Decreased breath sounds are noted bilaterally Cardio regular rate, regular rhythm, S1 normal heart sound, S2 normal heart sound, no gallops and no clicks Cardio Narrative: There is a 2/6 systolic murmur noted at the apex and left sternal border GI normal to inspection, nondistended, normoactive bowel sounds, soft to palpation and non-tender Extremity normal to inspection Extremity Narrative: Left upper leg incision area looks clean and dry at this time, no redness was noted Skin no rashes or lesions noted, no wounds and skin turgor normal Neuro CN's II-XII intact bilaterally and no focal motor deficits Neuro Narrative: Patient is lethargic, she does respond to painful stimuli Sensorium / Orientation: alert Speech: speech normal Psych Psych Narrative: Patient is lethargic and confused Attitude: bizarre Thought Process: disorganized, confused and confabulating Memory / Cognition: cognition impaired Const alert and no apparent distress Constitutional Narrative: Patient is alert but confused she does follow simple commands however Orientation / Consciousness: confused, disoriented and lethargic HEENT normocephalic, head/scalp atraumatic and moist oral mucous membranes Eyes PERRL, EOMs intact bilaterally and conjunctivae normal Neck no lymphadenopathy, supple, no JVD and no carotid bruits Resp normal respiratory effort, no retractions and no use of accessory muscles Resp Narrative: Decreased breath sounds are noted bilaterally Cardio regular rate, regular rhythm, S1 normal heart sound, S2 normal heart sound, no gallops and no clicks Cardio Narrative: There is a 2/6 systolic murmur noted at the apex and left sternal border GI normal to inspection, nondistended, normoactive bowel sounds, soft to palpation and non-tender Extremity normal to inspection Extremity Narrative: Left upper leg incision area looks clean and dry at this time, no redness was noted Skin no rashes or lesions noted, no wounds and skin turgor normal Neuro CN's II-XII intact bilaterally and no focal motor deficits Neuro Narrative: Patient is lethargic, she does respond to painful stimuli Sensorium / Orientation: alert Speech: speech normal Psych Psych Narrative: Patient is lethargic and confused Attitude: bizarre Thought Process: disorganized, confused and confabulating Memory / Cognition: cognition impaired Assessment & Plan Assessment/Plan (1) Closed intertrochanteric fracture of left hip: QUALIFIERS: Encounter type: initial encounter Fracture alignment: displaced Qualified Code(s): S72.142A - Displaced intertrochanteric fracture of left femur, initial encounter for closed fracture PLAN: #1 Left intertrochanteric fracture-as a consequence of osteoporosis-postop day 3 insertion of left hip cephalomedullary nail #2 chronic obstructive pulmonary disease-patient is currently on nasal cannula oxygen, will continue to wean if possible, her baseline oxygen requirement is 3 L/min. #3 chronic hypoxic respiratory failure-patient is on oxygen 3 L/min via nasal cannula at the nursing facility, she is currently on 5 L and appears stable at this time #4 schizoaffective disorder-patient exhibits confusion and poor insight #5 chronic use of warfarin with elevated [id number] currently was started back on warfarin yesterday, INR will be rechecked tomorrow #6 chronic pain due to osteoarthritis #7 osteoporosis #8 atelectasis right lung base-continue aerosol treatments #9 Alzheimer's dementia Further note: Patient is a DNR comfort care only according to her half-way paperwork Visit Charges Inpatient E&M: 45249 Subs Hosp L2
[2020-12-29] VITALS (9 sets, daily range): BP systolic 126–154; BP diastolic 55–87; PULSE 80–97; RESP 16–18; TEMP 36.4–37.3; O2SAT 83–96
[2020-12-29] MEDS: Ipratropium/Albuterol Sulfate 3 ML AMPUL.NEB INHALATION ×3 (00:51→13:26)
[2020-12-29] MEDS: oxyCODONE 5 MG Tablet 10 MG PO ×2 (02:19→06:18)
[2020-12-29] MEDS: Morphine 2 MG/ML Syringe IV (04:16)
[2020-12-29 05:26] LABS: Absolute Lymphocyte Count 0.96 X10^3/uL (0.83-4.51); Absolute Neutrophil Count 8.1 X10^3/uL (2.0-7.7); Basophil# 0.03 X10^3/uL; Basophil% 0.3 % (0-1); Eosinophil# 0.07 X10^3/uL; Eosinophils% 0.7 % (0-5); Hematocrit 27.7 % (37-47); Hemoglobin 8.6 g/dL (12.0-15.0); Lymphocyte # 0.96 X10^3/ul (0.83-4.51); Lymphocyte % 9.1 % (19-41); Mean Corpuscular Hgb 30.7 pg (27.0-32.0); Mean Corpuscular Volume 98.9 fL (81-99); Monocyte# 1.34 X10^3/uL; Monocyte% 12.7 % (0-10); NRBC Flagged by Analyzer 0 % (0-5); Neutrophil # 8.05 X10^3/uL (2.7-7.7); Neutrophil % 76.5 % (47-70); Platelet Count 325 K/mm3 (150-450); RBC Distribution Width CV 13.2 % (11.6-14.6); RBC Distribution Width SD 47.6 fl (35.1-43.9); White Blood Count 10.5 K/mm3 (4.4-11.0)
[2020-12-29 05:35] LABS: International Normalized Ratio 1.2; Prothrombin Time (Protime)PT. 14.1 SECONDS (11.7-14.9)
[2020-12-29] MEDS: Lactated Ringers 1,000 ML 100 ML IV (05:40)
[2020-12-29] MEDS: Ondansetron 4 MG/2 ML Vial IV (08:24)
[2020-12-29] MEDS: Calcium Carbonate 500 MG Tablet PO (08:26)
[2020-12-29] MEDS: Isosorbide Mononitrate 30 MG Tablet PO (08:26)
[2020-12-29] MEDS: amLODIPine 5 MG Tablet PO (08:26)
[2020-12-29] MEDS: Atenolol 25 MG Tablet 12.5 MG PO (08:26)
[2020-12-29] MEDS: Folic Acid 1 MG Tablet PO (08:26)
[2020-12-29] MEDS: Aspirin 81 MG TAB.CHEW PO (08:27)
[2020-12-29] MEDS: Tamsulosin HCl 0.4 MG Capsule PO (08:27)
[2020-12-29] MEDS: Cholecalciferol (VIT D3) 25 MCG TABLET (1,000 UNITS) PO (08:28)
[2020-12-29] MEDS: Pantoprazole Sodium 20 MG Tablet PO (08:28)
--- NOTE | 2020-12-29 09:16 | CASEMGMT ---
Social Work Note SW faxed updated clinicals to [facility]. 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
--- NOTE | 2020-12-29 11:42 | TREXTCAR_ITS ---
Diet 12/27/20 09:54 Diet: Regular - General Food consistency:: Pureed Liquid Consistency:: [place]/Mildly Thick Type of Dietary Supplement:: Ensure Pudding Is pt able to select menu?: No Diet Comments: Ensure Pudding BID w/ lunch and dinner; Total assistance at meals Routine Orders/Code Status O2 Liters per Minute: 5 O2 Frequency: Continuous Keep PO Greater than or Equal to (%): 90 Routine Lab Work: CBC (in one week) Code Status: DNRCC Wound(s) LEFT HIP: Wound Type: Surgical Incision L UPPER HIP: Wound Type: Surgical Incision COCCYX: Wound Type: Pressure Injury Therapies Weight Bearing: Weight bearing as tolerated Physical Therapy: Eval and Treat Occupational Therapy: Eval and Treat Speech Therapy: Eval and Treat Problem/Diagnosis (1) Closed intertrochanteric fracture of left hip: Status: Acute (2) Dementia: Status: Acute (3) COPD (chronic obstructive pulmonary disease): Status: Chronic (4) CAD (coronary artery disease): Status: Acute (5) Schizophrenia: Status: Acute Allergies/Procedures Done in Hospital Allergies acetaminophen [From Percocet] Allergy (Verified 12/24/20 11:52) Unknown atropine [From ] Allergy (Verified 12/24/20 11:52) Unknown codeine Allergy (Verified 12/24/20 11:52) Unknown colestipol Allergy (Verified 12/24/20 11:52) Unknown enalaprilat [From Vasotec] Allergy (Verified 12/24/20 11:52) Unknown erythromycin base Allergy (Verified 12/24/20 11:52) Unknown hydrochlorothiazide Allergy (Verified 12/24/20 11:52) Unknown hyoscyamine [From ] Allergy (Verified 12/24/20 11:52) Unknown losartan Allergy (Verified 12/24/20 11:52) NEEDS FOLLOW-UP lovastatin Allergy (Verified 12/24/20 11:52) Unknown mesalamine [From Asacol] Allergy (Verified 12/24/20 11:52) Unknown metronidazole [From Flagyl] Allergy (Verified 12/24/20 11:52) Unknown morphine Allergy (Verified 12/24/20 11:52) Other nifedipine Allergy (Verified 12/24/20 11:52) Unknown oxycodone Allergy (Verified 12/24/20 11:52) Unknown Penicillins [PCN] Allergy (Verified 12/24/20 11:52) Unknown phenobarbital [From ] Allergy (Verified 12/24/20 11:52) Unknown propoxyphene [From Darvocet-N] Allergy (Verified 12/24/20 11:52) Unknown scopolamine [From ] Allergy (Verified 12/24/20 11:52) Unknown streptomycin Allergy (Verified 12/24/20 11:52) Unknown sucralfate [From Carafate] Allergy (Verified 12/24/20 11:52) Unknown Sulfa (Sulfonamide Antibiotics) Allergy (Verified 12/24/20 11:52) Unknown tramadol Allergy (Verified 12/24/20 11:52) Unknown Procedures: None, 2-D Echocardiogram and - (intramedullary nail insertion left femur) Type of Care/Length of Stay Estimated LOS: Convalescent Care Less Than 30 days Type of Care Needed: Skilled Rehab Potential: Fair Prognosis: Fair Additional Orders/Day of Discharge H&P will serve as current which was dated: 12/24/20 Day of Discharge: 12/29/20 Dietary and Speech Recommendations Dietitian Recommendations/Changes: Will continue regular diet as ordered w/ consistency as per PHARMACY INFORMATICS SPECIALIST. Will change ONS from ensure enlive to ensure pudding BID w/ lunch and dinner. Adjust ONS as needed to optimize intake as established; pt is a total feed. May need to consider TF support if PO subotimal at meals and wt declines. Follow Up Care Please Follow Up With: Erwin Tobin MD When: in 12 days Discharge Plan Admission Admit Date/Time: 12/24/20 12:09 Primary Reason for Your Visit: left hip fracture Attending Provider: David Swan Primary Care Provider: Sandhya Abdi Consulting Providers: Erwin Tobin Discharge Orders/Prescriptions Prescriptions: New gabapentin 600 mg Tablet 600 mg PO 1800 Qty: 1 RF: 0 ipratropium-albuterol 0.5 mg-3 mg(2.5 mg base)/3 mL Solution For Nebulization 3 ml inhalation Q6H.RT Qty: 1 RF: 0 oxycodone 5 mg Tablet 10 mg PO Q4H PRN PRN (Reason: Pain Score 4-5) 7 Days Qty: 15 RF: 0 Continued albuterol sulfate 2.5 mg /3 mL (0.083 %) Solution For Nebulization 2.5 mg INHALATION TID RF: 0 isosorbide mononitrate 30 mg Tablet Extended Release 24 Hr 30 mg PO DAILY RF: 0 atenolol 25 mg Tablet 12.5 mg PO DAILY RF: 0 amlodipine 5 mg Tablet 5 mg PO DAILY RF: 0 warfarin 4 mg Tablet 4 mg PO SUTUFR RF: 0 warfarin 3 mg Tablet 3 mg PO MOWETHSA RF: 0 pantoprazole 20 mg Tablet,Delayed Release (Dr/Ec) 20 mg PO DAILY RF: 0 tamsulosin 0.4 mg Capsule 0.4 mg PO DAILY RF: 0 calcium carbonate [Calcium Antacid] 200 mg calcium (500 mg) Tablet,Chewable 500 mg PO BID RF: 0 folic acid 1 mg Tablet 1 mg PO DAILY RF: 0 aspirin 81 mg Tablet 81 mg PO DAILY RF: 0 ziprasidone HCl [Geodon] 60 mg Capsule 60 mg PO DINNER RF: 0 cholecalciferol (vitamin D3) 25 mcg (1,000 unit) Tablet 25 mcg PO DAILY RF: 0 buprenorphine [Butrans] 10 mcg/hour Patch Weekly 1 patch TRANSDERMAL Q7D RF: 0 ProAir RespiClick 90 mcg/actuation Aerosol Powdr Breath Activated 1 inh INHALATION Q6H RF: 0 B12 Active 1,000 mcg Tablet,Chewable 500 mcg PO DAILY RF: 0 psyllium Packet 1 packet PO DAILY RF: 0 Prolia 60 mg/mL Syringe 60 mg SUBCUT RF: 0 iron,carbonyl-vitamin C-FOS 1 tab PO/SL DAILY RF: 0 Tylenol 500 mg PO/SL Q6H RF: 0 Discontinued lidocaine 5 % Adhesive Patch,Medicated 1 patch TOPICAL DAILY RF: 0 simethicone [Gas-X] 80 mg Tablet,Chewable 80 mg PO TID RF: 0 gabapentin 300 mg Tablet 600 mg PO 4X/DAY RF: 0 Movantik 25 mg Tablet 25 mg PO DAILY RF: 0 Referrals / Follow Up: Sandhya Abdi MD [Primary Care Provider] - Erwin Tobin MD [STAFF PHYSICIAN] - (in 12 days) Disposition Disposition (needs filled in before D/C Order can be placed): Intermediate Facility
--- NOTE | 2020-12-29 12:25 | NURSING ---
notified dr melendez that when pt moves her sats drop to low 80's high 70's. placed on 40% venti mask and pt sats 94%. dr melendez stated that pt dnrcc and not to place on mask. pt on nc at 5l sats 83%
--- NOTE | 2020-12-29 14:00 | CASEMGMT ---
Social Work Note Pt is able to discharge back to [facility] today. ESPERANZA faxed completed discharge paperwork to [facility] including transfer to extended care facility, signed medication list, any scripts, COVID test and COVID tool. Original in SNF folder and copy on pt's chart. SW accessed trip assist and arranged transportation via cot for 3:00pm. Transportation form completed and placed on SNF folder and copy on pt's chart. ESPERANZA updated RN on transportation time. ESPERANZA placed a call to [facility] and updated Tabby on transportation time. ESPERANZA placed a call to pt's daughter Lidia and updated her on discharge and transportation time. Lidia states understanding. Plan: Return to [facility] with physician's transporting pt via cot at 3:00pm Esme LOVE, [employer]
--- NOTE | 2020-12-29 15:11 | NURSING ---
pt left via ambulance
--- NOTE | 2020-12-29 19:09 | DS.PCM_ITS ---
Providers Date of Admission: 12/24/20 Date of Discharge: 12/29/20 Primary Care Physician: Dr. Sandhya Abdi MD Consultations 12/24/20 16:18 Consult: Orthopedics Routine Consulting Provider: Erwin Tobin Reason for Consult: hip fracture EMERGENT Consult: No MD Notified: Yes Date Notified:: 12/24/20 Time Notified: 16:21 Method of Notification: Verbal Reason For Visit: HIP FRACTURE Diagnosis Discharge Diagnosis (1) Closed intertrochanteric fracture of left hip: Status: Acute Code(s): S72.142A - Displaced intertrochanteric fracture of left femur, initial encounter for closed fracture Qualifiers: Encounter type: initial encounter Fracture alignment: displaced Qualified Code(s): S72.142A - Displaced intertrochanteric fracture of left femur, initial encounter for closed fracture (2) Dementia: Status: Acute Code(s): F03.90 - Unspecified dementia without behavioral disturbance (3) COPD (chronic obstructive pulmonary disease): Status: Chronic Code(s): J44.9 - Chronic obstructive pulmonary disease, unspecified (4) CAD (coronary artery disease): Status: Acute Code(s): I25.10 - Atherosclerotic heart disease of redding coronary artery without angina pectoris (5) Schizophrenia: Status: Acute Code(s): F20.9 - Schizophrenia, unspecified Plan: #1 Left intertrochanteric fracture-as a consequence of osteoporosis #2 chronic obstructive pulmonary disease #3 Acute on chronic hypoxic respiratory failure #4 schizoaffective disorder #5 chronic use of warfarin with elevated INR #6 chronic pain due to osteoarthritis #7 osteoporosis #8 atelectasis right lung base #9 Alzheimer's dementia Medications at Discharge Home Medications B12 Active 500 mcg PO DAILY 12/24/20 ProAir RespiClick 1 inh INHALATION Q6H 12/24/20 Prolia 60 mg SUBCUT 12/24/20 Tylenol 500 mg PO/SL Q6H 12/24/20 albuterol sulfate 2.5 mg INHALATION TID 12/24/20 amlodipine 5 mg PO DAILY 12/24/20 aspirin 81 mg PO DAILY 12/24/20 atenolol 12.5 mg PO DAILY 12/24/20 buprenorphine [Butrans] 1 patch TRANSDERMAL Q7D 12/24/20 calcium carbonate [Calcium Antacid] 500 mg PO BID 12/24/20 cholecalciferol (vitamin D3) 25 mcg PO DAILY 12/24/20 folic acid 1 mg PO DAILY 12/24/20 iron,carbonyl-vitamin C-FOS 1 tab PO/SL DAILY 12/24/20 isosorbide mononitrate 30 mg PO DAILY 12/24/20 pantoprazole 20 mg PO DAILY 12/24/20 psyllium 1 packet PO DAILY 12/24/20 tamsulosin 0.4 mg PO DAILY 12/24/20 warfarin 3 mg PO MOWETHSA 12/24/20 warfarin 4 mg PO SUTUFR 12/24/20 ziprasidone HCl [Geodon] 60 mg PO DINNER 12/24/20 gabapentin 600 mg PO 1800 #1 tab 12/29/20 ipratropium-albuterol 3 ml INHALATION Q6H.RT #1 ml 12/29/20 oxycodone 10 mg PO Q4H PRN PRN 7 Days #15 tab 12/29/20 Hospital Course Operations - (Insertion of left hip cephalic medullary nail-12/25/2020) Procedures 2-D Echocardiogram Summary of Care Provided Minutes Spent on Discharge: 33 Hospital Course: This 80-year-old white female was transported from a local extended care facility at which she permanently resides due to a fall with inability to bear weight on her left hip and left hip pain. Patient has an extensive history of medical problems including chronic hypoxic respiratory sid lure on [facility] oxygen, schizoaffective disorder, and dementia. Evaluation in the emergency room revealed the patient to have a left intertrochanteric fracture, she was admitted to [facility] and seen in consultation by orthopedic surgery, she had behavioral issues during her hospitalization with confusion and agitation at times but was finally cleared for surgery and underwent an insertion of the left hip cephalic medullary nail. Postop patient became more hypoxic, she was a DNR CC and chest x-ray revealed right-sided atelectasis or infiltrate-this examiner did not feel she had pneumonia. On 12/29/2020, patient was seen and examined :alert and no apparent distress Constitutional Narrative: Patient is alert but confused she does follow simple commands however Orientation / Consciousness: confused, disoriented and lethargic HEENT normocephalic, head/scalp atraumatic and moist oral mucous membranes Eyes PERRL, EOMs intact bilaterally and conjunctivae normal Neck no lymphadenopathy, supple, no JVD and no carotid bruits Resp normal respiratory effort, no retractions and no use of accessory muscles Resp Narrative: Decreased breath sounds are noted bilaterally Cardio regular rate, regular rhythm, S1 normal heart sound, S2 normal heart sound, no gallops and no clicks Cardio Narrative: There is a 2/6 systolic murmur noted at the apex and left sternal border GI normal to inspection, nondistended, normoactive bowel sounds, soft to palpation and non-tender Extremity normal to inspection Extremity Narrative: Left upper leg incision area looks clean and dry at this time, no redness was noted Skin no rashes or lesions noted, no wounds and skin turgor normal Neuro CN's II-XII intact bilaterally and no focal motor deficits Neuro Narrative: Patient is lethargic, she does respond to painful stimuli Sensorium / Orientation: alert Speech: speech normal Psych Psych Narrative: Patient is lethargic and confused Attitude: bizarre Thought Process: disorganized, confused and confabulating Memory / Cognition: cognition impaired On 12/29/2020, patient was felt to be stable for discharge to her local extended care facility, prognosis was guarded due to the patient's multiple medical pro blems including dementia and COPD with chronic respiratory failure. ABG / Lab / Microbiology Data Result Diagrams: 12/29/20 04:55 12/26/20 05:55 Laboratory: Laboratory Results - last 24 hr 12/29/20 12/29/20 04:55 04:55 WBC 10.5 RBC 2.80 L Hgb 8.6 L Hct 27.7 L MCV 98.9 MCH 30.7 MCHC 31.0 L RDW Std Deviation 47.6 H RDW Coeff of [place] 13.2 Plt Count 325 MPV 10.0 Immature Gran % (Auto) 0.700 Neut % (Auto) 76.5 H Lymph % (Auto) 9.1 L [place] % (Auto) 12.7 H Eos % (Auto) 0.7 Baso % (Auto) 0.3 Absolute Neuts (auto) 8.1 H Absolute Lymphs (auto) 0.96 Nucleated RBC % 0 PT 14.1 INR 1.2 Microbiology: Microbiology 12/29/20 09:35 SARS-CoV-2 Antigen (Rapid) - Final Mucosa - Nose Microbiology 12/29/20 09:35 Mucosa - Nose SARS-CoV-2 Antigen (Rapid) - Final 12/24/20 11:35 Interface Orders SARS-CoV-2 Antigen (Rapid) - Final D/C Instructions Please Follow Up With: Erwin Tobin MD Meaningful Use Info Meaningful Use Diagnoses (Choose all that apply): None applicable Discharge Plan Admission Admit Date/Time: 12/24/20 12:09 Primary Reason for Your Visit: left hip fracture Attending Provider: David Swan Primary Care Provider: Sandhya Abdi Consulting Providers: Erwin Tobin Discharge Orders/Prescriptions Prescriptions: New gabapentin 600 mg Tablet 600 mg PO 1800 Qty: 1 RF: 0 ipratropium-albuterol 0.5 mg-3 mg(2.5 mg base)/3 mL Solution For Nebulization 3 ml inhalation Q6H.RT Qty: 1 RF: 0 oxycodone 5 mg Tablet 10 mg PO Q4H PRN PRN (Reason: Pain Score 4-5) 7 Days Qty: 15 RF: 0 Continued albuterol sulfate 2.5 mg /3 mL (0.083 %) Solution For Nebulization 2.5 mg INHALATION TID RF: 0 isosorbide mononitrate 30 mg Tablet Extended Release 24 Hr 30 mg PO DAILY RF: 0 atenolol 25 mg Tablet 12.5 mg PO DAILY RF: 0 amlodipine 5 mg Tablet 5 mg PO DAILY RF: 0 warfarin 4 mg Tablet 4 mg PO SUTUFR RF: 0 warfarin 3 mg Tablet 3 mg PO MOWETHSA RF: 0 pantoprazole 20 mg Tablet,Delayed Release (Dr/Ec) 20 mg PO DAILY RF: 0 tamsulosin 0.4 mg Capsule 0.4 mg PO DAILY RF: 0 calcium carbonate [Calcium Antacid] 200 mg calcium (500 mg) Tablet,Chewable 500 mg PO BID RF: 0 folic acid 1 mg Tablet 1 mg PO DAILY RF: 0 aspirin 81 mg Tablet 81 mg PO DAILY RF: 0 ziprasidone HCl [Geodon] 60 mg Capsule 60 mg PO DINNER RF: 0 cholecalciferol (vitamin D3) 25 mcg (1,000 unit) Tablet 25 mcg PO DAILY RF: 0 buprenorphine [Butrans] 10 mcg/hour Patch Weekly 1 patch TRANSDERMAL Q7D RF: 0 ProAir RespiClick 90 mcg/actuation Aerosol Powdr Breath Activated 1 inh INHALATION Q6H RF: 0 B12 Active 1,000 mcg Tablet,Chewable 500 mcg PO DAILY RF: 0 psyllium Packet 1 packet PO DAILY RF: 0 Prolia 60 mg/mL Syringe 60 mg SUBCUT RF: 0 iron,carbonyl-vitamin C-FOS 1 tab PO/SL DAILY RF: 0 Tylenol 500 mg PO/SL Q6H RF: 0 Discontinued lidocaine 5 % Adhesive Patch,Medicated 1 patch TOPICAL DAILY RF: 0 simethicone [Gas-X] 80 mg Tablet,Chewable 80 mg PO TID RF: 0 gabapentin 300 mg Tablet 600 mg PO 4X/DAY RF: 0 Movantik 25 mg Tablet 25 mg PO DAILY RF: 0 Referrals / Follow Up: Sandhya Abdi MD [Primary Care Provider] - Erwin Tobin MD [STAFF PHYSICIAN] - (in 12 days) Disposition Disposition (needs filled in before D/C Order can be placed): [facility]-Way Facility Visit Charges Inpatient E&M: 86189 Disch Hosp
== END 2020-12-29 15:15 | disposition skilled nursing facility (03) | DRG 480 ==
LOC: ED 12:04 → PCU 12:36 → MS3 12-26 09:14
PROVIDERS: Specialist; Admitting Provider Internal Medicine; Emergency Provider Emergency Medicine; PCP Internal Medicine Geriatric Medicine; Visit Provider Internal Medicine
PROC: 0QS706Z Reposition Left Upper Femur with Intramedullary Internal Fixation Device, Open Approach (ICD-10-PCS; CPT 27245; principal; 2020-12-25 13:55)
DX: M80.052A Age-related osteoporosis with current pathological fracture, left femur, initial encounter for fracture (principal); J96.21 Acute and chronic respiratory failure with hypoxia; J98.11 Atelectasis; D62 Acute posthemorrhagic anemia; S72.142A Displaced intertrochanteric fracture of left femur, initial encounter for closed fracture; W18.30XA Fall on same level, unspecified, initial encounter; Y92.129 Unspecified place in nursing home as the place of occurrence of the external cause; I25.10 Atherosclerotic heart disease of native coronary artery without angina pectoris; J44.9 Chronic obstructive pulmonary disease, unspecified; K21.9 Gastro-esophageal reflux disease without esophagitis; I25.2 Old myocardial infarction; Z66 Do not resuscitate; M19.90 Unspecified osteoarthritis, unspecified site; F25.9 Schizoaffective disorder, unspecified; Z79.01 Long term (current) use of anticoagulants; Z79.891 Long term (current) use of opiate analgesic; Z79.899 Other long term (current) drug therapy; Z88.0 Allergy status to penicillin; Z88.5 Allergy status to narcotic agent; Z88.2 Allergy status to sulfonamides; G30.9 Alzheimer's disease, unspecified; F02.80 Dementia in other diseases classified elsewhere, unspecified severity, without behavioral disturbance, psychotic disturbance, mood disturbance, and anxiety; R01.1 Cardiac murmur, unspecified; G89.29 Other chronic pain; F39 Unspecified mood [affective] disorder
CPT/HCPCS: 36415; 51702; 70450; 71045; 72170; 73502; 73552; 74176; 76000; 80048; 81001; 82565; 84484; 85025; 85027; 85610; 86850; 86900; 86901; 87426; 92507; 92526; 93005; 93306; 94640; 94762; 97110; 97163; 97166; 97530; 97535; 97802; 97803; 99251; 99285; C1713; J7030; J7120; A4216; G0463; J2405